=== PATIENT | male | born 1960 | race Caucasian/White ===

== ENCOUNTER → 2020-09-09 13:57 | Outpatient (BNVA) | payer BC, SELFPAY | PROVIDERS: Family Provider Family Medicine; PCP Family Medicine; Visit Provider Urology | DX: N39.9 Disorder of urinary system, unspecified (principal); R97.20 Elevated prostate specific antigen [PSA]; N52.9 Male erectile dysfunction, unspecified; N41.1 Chronic prostatitis; N40.1 Benign prostatic hyperplasia with lower urinary tract symptoms | CPT/HCPCS: 81003; 84153 ==

== ENCOUNTER → 2021-01-28 11:16 | Outpatient (BNVA) | payer BC, SELFPAY | PROVIDERS: Family Provider Family Medicine; PCP Family Medicine; Visit Provider Surgery | DX: K57.92 Diverticulitis of intestine, part unspecified, without perforation or abscess without bleeding (principal) | CPT/HCPCS: 87635 ==

== ENCOUNTER 2021-02-02 07:44 | Day surgery (SDC) | payer BC, SELFPAY ==
[2021-01-29 12:46] VITALS: BMI 32.8
--- NOTE | 2021-02-02 08:19 | ANES.PREANE2 ---
Pre-Anesthetic Assessment Pre-Anesthetic Assessment: Height/Weight: Height 1.83 m Weight 109.769 kg Preop Diagnosis: screening colonoscopy Proposed Procedure: Operation Date: 02/02/21 09:30 Proposed Procedures p Colonoscopy 99081 k57.92(Not Applicable) - Kameron Jackson MD Familial anesthetic complications: None Was Beta Kenyatta taken within 24 hours: N/A Was Clonidine taken within 24 hours: N/A Last intake: > 8 hrs Social: Social History: No alcohol and No tobacco Exam: Pre-Anes Outpt Exam: alert, oriented x 3, clear to auscultation bilaterally and regular rate & rhythm Airway: Cervical ROM: WNL MP: 1 Dentition: Other (missing) Pulmonary: Pulmonary: COPD (mild) Musc/skel: Comments: hip replacement Anesthetic Plan: ASA status: 1 Anesthesia: MAC Risk of > 500 ml blood loss (7ml/kg in children): No PFSH Anesthesia PFSH: Medical History (Updated 01/15/21 @ 16:10 by Kameron Jackson MD) BPH loc w urin obs/LUTS Chronic prostatitis COVID-19 Diverticulitis Erectile dysfunction Surgical History (Updated 01/15/21 @ 10:15 by Kameron Jackson MD) H/O laminectomy H/O vasectomy History of left hip replacement Family History Father , PROSTATE Cancer UNCLE PROSTATE CANCER Mother , AT AGE 64 Emphysema lung Social History Smoking and tobacco status: former smoker Alcohol intake: current Alcohol intake frequency: holidays/special occasions only Adopted: No Caregiver/support person: No Lives independently: No Household members: spouse Marital status: Current occupational status: employed Data Anesthesia Cardiac Studies: No Data to Display
[2021-02-02 08:30] VITALS: BP 174/97; PULSE 83; RESP 16; TEMP 36.6; O2SAT 95
[2021-02-02] MEDS: sodium chloride 0.9% 1,000 ML 30 ML IV (08:47)
--- NOTE | 2021-02-02 09:25 | W.PM.OPSUD ---
Surgery/Procedure H&P Update DATE OF PROCEDURE: February 02, 2021 DATE H&P PERFORMED: 01/15/21 H&P UPDATE INFORMATION: I have reviewed H&P completed within last 30 days, I have examined patient prior to procedure and No changes to prior documentation PREOP DIAGNOSIS: screening colonoscopy PLANNED PROCEDURE: Operation Date: 02/02/21 09:30 Proposed Procedures p Colonoscopy 11643 k57.92(Not Applicable) - Kameron Jackson MD
[2021-02-02 10:15] VITALS: BP 119/76; PULSE 73; RESP 16; TEMP 36.1; O2SAT 94
[2021-02-02 10:30] VITALS: BP 134/87; PULSE 70; RESP 16; TEMP 36.3; O2SAT 96
--- NOTE | 2021-02-02 18:59 | ANE.PACU2 ---
Inpatient post-anesthesia follow up: Airway intact: Yes Vital signs: Temperature 97.4 F Pulse Rate 70 Respiratory Rate 16 Blood Pressure 134/87 Pulse Oximetry 96 Oxygen Delivery Me thod Room Air Oxygen Flow Rate Fraction of Inspir ed Oxygen Hydration adequate: Yes Nausea and vomiting: No Pain level: 1 Mental status: Baseline
== END 2021-02-02 10:45 | disposition home or self-care (01) ==
PROVIDERS: PCP Family Medicine; Visit Provider Surgery
PROC: 0DJD8ZZ Inspection of Lower Intestinal Tract, Via Natural or Artificial Opening Endoscopic (ICD-10-PCS; CPT 45378; principal; 2021-02-02 09:30)
DX: Z12.11 Encounter for screening for malignant neoplasm of colon (principal); K57.30 Diverticulosis of large intestine without perforation or abscess without bleeding; N40.1 Benign prostatic hyperplasia with lower urinary tract symptoms; N13.8 Other obstructive and reflux uropathy; Z87.891 Personal history of nicotine dependence; J44.9 Chronic obstructive pulmonary disease, unspecified
CPT/HCPCS: 45378; 96360; 96361; J2704; J7030

== ENCOUNTER 2021-07-08 08:50 | Outpatient (CLI) | payer BC, SELFPAY ==
[2021-07-08] MEDS: iohexol 300 mg/mL 50 mL Btl PO (09:15)
--- NOTE | 2021-07-08 10:30 | CT_ITS ---
WS: [id number] CT ABDOMEN PELVIS TECHNIQUE: Contrast-enhanced CT of the abdomen and pelvis with coronal and sagittal reformatted image s. CLINICAL INFORMATION: K57.92 - Diverticulitis of intestine, part unspecified, w... COMPARISON: CT abdomen pelvis 2006 DLP: 1108.[address] scans at [facility] use at least one of these dose optimization techniques: automated e xposure control; mA and/or kV adjustment per patient size (includes targeted exams where dose is matc hed to clinical indication); or iterative reconstruction. FINDINGS: Hepatomegaly. Diffuse fatty infiltration of the liver. Normal portal vein and splenic vein. Normal ga llbladder. Normal spleen. Fatty atrophy of the pancreas. Normal GE junction. Lung bases are well aera puneet. Left DANA degrades images in the pelvis. Diffuse thickening of the proximal sigmoid colon with surroun ding induration compatible with acute diverticulitis. No evidence of drainable abscess or fluid colle ction. A few reactive lymph nodes in the pelvis. No evidence of high-grade small or large bowel obstr uction. Normal appendix in the right lower quadrant. Enlarged prostate measuring 5 cm in maximum dime nsion. Recommend correlation PSA. Adrenal glands are normal. Normal renal parenchymal enhancement. No hydronephrosis. Left upper pole r enal cyst measuring 6.7 x 4.0 CM. Right peripelvic cysts. Normal caliber abdominal aorta. Fat-contain ing umbilical hernia. Grade 1 anterolisthesis L4 on L5. Disc space narrowing worse L4-L5 and L5-S1. A dvanced degenerative arthritis right hip. CT/CT abdomen pelvis w con* [id number] IMPRESSION: 1. Findings compatible with acute sigmoid diverticulitis. No evidence of drain able abscess or fluid collection. 2. Diffuse fatty infiltration of the liver. Hepatomegaly. 3. Enlarged prostate measuring 5.0 CM. Correlation PSA. 4. No evidence of small or large bowel obstruction.
[2021-07-08 10:32] LABS: Blood Urea Nitrogen 11 mg/dL (8-23); Glomerular Filtration Rate 85.8 mL/min (90-130)
[2021-07-08] MEDS: iohexol 300 mg/mL 100 mL Btl IV (10:38)
== END 2021-07-08 08:51 | disposition home or self-care (01) ==
PROVIDERS: Surgery; PCP Family Medicine; Visit Provider Surgery
DX: K57.92 Diverticulitis of intestine, part unspecified, without perforation or abscess without bleeding (principal); K76.0 Fatty (change of) liver, not elsewhere classified; R16.0 Hepatomegaly, not elsewhere classified; N40.0 Benign prostatic hyperplasia without lower urinary tract symptoms
CPT/HCPCS: 74177; 82565; 84520; Q9967

== ENCOUNTER → 2021-07-15 12:18 | Outpatient (BNVA) | payer BC, SELFPAY | PROVIDERS: PCP Family Medicine; Visit Provider Surgery | DX: Z11.52 Encounter for screening for COVID-19 (principal) | CPT/HCPCS: 87635 ==

== ENCOUNTER 2021-07-19 12:49 | Inpatient (IN) | payer BC, SELFPAY ==
[2021-07-16 16:37] VITALS: BMI 29.4
[2021-07-19] VITALS (16 sets, daily range): BP systolic 124–171; BP diastolic 70–96; PULSE 55–83; RESP 13–20; TEMP 35.9–36.7; O2SAT 90–100
--- NOTE | 2021-07-19 09:00 | P.ANESASSM_ITS ---
Pre-Anesthetic Assessment Pre-Anesthetic Assessment: Height/Weight: Height 1.83 m Weight 98.43 kg Temp Pulse Resp BP Pulse Ox 97.1 F L 83 18 146/84 95 07/19/21 08:42 07/19/21 08:42 07/19/21 08:42 07/19/21 08:42 07/19/21 08:42 Preop Diagnosis: diverticulitis Proposed Procedure: Operation Date: 07/19/21 09:15 Proposed Procedures p Laparoscopic Sigmoidectomy 77914 K57.92(Not Applicable) - Kameron Jackson MD Was Beta Kenyatta taken within 24 hours: N/A Was Clonidine taken within 24 hours: N/A Last intake: Intake Last Liquid Date 07/18/21 Last Liquid Time 23:00 Last Solid Date 07/17/21 Last Solid Time 15:00 Social: Social History: No alcohol and No tobacco Exam: Pre-Anes Outpt Exam: alert, oriented x 3, clear to auscultation bilatera lly and regular rate & rhythm Airway: Submandibular: WNL Cervical ROM: WNL MP: 2 Dentition: Chipped GI: Comments: Diverticulitis Anesthetic Plan: ASA status: 2 Anesthesia: General Risk of > 500 ml blood loss (7ml/kg in children): No PFSH Anesthesia PFSH: Medical History BPH loc w urin obs/LUTS Chronic prostatitis COVID-19 Diverticulitis Erectile dysfunction Surgical History H/O laminectomy H/O vasectomy History of left hip replacement Status post colonoscopy (02/02/21) Diverticulosis, repeat in 5 years Family History Father , PROSTATE Cancer UNCLE PROSTATE CANCER Mother , AT AGE 64 Emphysema lung Social History Smoking and tobacco status: former smoker Alcohol intake: current Alcohol intake frequency: holidays/special occasions only Adopted: No Caregiver/support person: No Lives independently: No Household members: spouse Marital status: Current occupational status: employed Data Anesthesia Cardiac Studies: No Data to Display
--- NOTE | 2021-07-19 09:20 | W.PM.OPSUD ---
Surgery/Procedure H&P Update DATE OF PROCEDURE: July 19, 2021 DATE H&P PERFORMED: 06/22/21 H&P UPDATE INFORMATION: I have reviewed H&P completed within last 30 days, I have examined patient prior to procedure and No changes to prior documentation PREOP DIAGNOSIS: diverticulitis PLANNED PROCEDURE: Operation Date: 07/19/21 09:15 Proposed Procedures p Laparoscopic Sigmoidectomy 51076 K57.92(Not Applicable) - Kameron Jackson MD
[2021-07-19] MEDS: piperacillin-tazobactam 3.375 GM in sodium chloride 0.9% (plus) 50 ML IV ×3 (09:36→22:45)
--- NOTE | 2021-07-19 10:23 | SUR.OPER ---
attempted to contact family via cell phone. no answer
--- NOTE | 2021-07-19 12:22 | SUR.OPER ---
attempted to contact via cell phone. no answer.
--- NOTE | 2021-07-19 13:25 | PM.OP ---
Operative Report Date of procedure: July 19, 2021 Pre-op Diagnosis: Recurrent sigmoid diverticulitis Post-op Diagnosis: Recurrent sigmoid diverticulitis Procedure Done: Laparoscopic sigmoid colectomy with 29 mm EEA anastomosis Laparoscopic takedown of splenic flexure Flexible sigmoidoscopy Specimens removed/disposition: Sigmoid colon, stapled and distal Proximal and distal doughnut from EEA anastomosis Surgeon: Kameron Jackson Anesthesia: General Condition: stable Disposition: PACU Procedure: The patient was taken to the operating room, intubated under general anesthesia after IV antibiotic had been administered. The patient was placed in modified lithotomy position with shoulder support and the Lebron catheter was placed. The rectum was irrigated with diluted Betadine using red rubber catheter. The abdomen and the perineum was prepped and draped in a sterile manner. Using a 15 blade, a midline supraumbilical incision was made and using open Bunn technique the peritoneal cavity was entered, 12 mm port was placed and 15 mm of pneumoperitoneum was created. A 10 mm 30? scope was then introduced. 5 mm ports were placed in the left lower quadrant and in the right upper quadrant under direct visualization in the midclavicular line and and a 12 mm port was placed in the right lower quadrant. Examination of the peritoneal cavity revealed thickened sigmoid colon adherent to the pelvic wall. 20 cc of saline mixed with 20 cc of Exparel mixed with 20 cc of 0.5% Marcaine was infiltrated bilaterally in the midclavicular line for laparoscopic TAP block. The patient was placed in steep Trendelenburg position and rotated to the right in order to place a small bowel loops in the right upper quadrant. The transverse colon was retracted superiorly. The junction between the descending colon and the sigmoid colon was marked and an opening was made in the sigmoid mesocolon at the junction of the descending and sigmoid colon. A medial to lateral dissection of the sigmoid mesocolon was performed using LigaSure close to the sigmoid colon and therefore the ureter was not identified. There were adhesions of the sigmoid colon to the pelvic wall which were taken down. The IMV was identified lateral to the ligament of Treitz and an opening was made medial to the IMV to enter the retroperitoneal space. The descending colon was mobilized medial to lateral up to the line of Toldt in the avascular retroperitoneal plane. The line of Toldt was opened along the descending colon up to the splenic flexure and the avascular plane was entered to mobilize the descending colon completely. The splenocolic and phrenocolic ligaments were taken down and the lesser sac was entered by dividing the greater omentum adjacent to the distal transverse colon, which was divided until the splenic flexure was completely mobilized. The sigmoid mesocolon was divided using LigaSure down to the proximal rectum. 2 loads of 45 mm blue load [place] ERIC stapler was introduced through the right lower quadrant port to divide the rectum distally. At this point it appeared that the descending colon reached up to the rectum and the midline umbilical incision was extended, the pneumoperitoneum was released and a wound protector was placed and the divided sigmoid colon was exteriorized. A noncrushing bowel clamps were placed in the descending colon and an Autosuture pursestring was placed proximally and the colon was divided and the specimen removed from the operating field. Serial anal dilators were used and it was decided to proceed with the 29 mm EEA stapler. The anvil of the EEA stapler was introduced into the descending colon and tied down. The colon was introduced into the peritoneal cavity and the pneumoperitoneum was recreated. The anus was digitally dilated and the EEA stapler was introduced through the anal canal and the trocar passed through the previously created staple line and attached to the anvil after ensuring that there was no twisting of the mesentery. The EEA stapler was fired to create the stapled 29 mm end-to-end anastomosis and 2 intact doughnuts were retrieved which were sent as proximal margin and distal margin. A colonoscope was introduced and passed beyond the anastomosis after submerging the anastomosis under saline in the pelvis. The air leak test was negative. There was no significant bleeding noted from the staple line which was at 18cm. The colonoscope was withdrawn. All 4 ports were removed under direct visualization and the fascia the midline was closed using #1 loop PDS. 20 cc of Exparel combination was infiltrated in the periumbilical incision. The fascia of the right lower quadrant port was closed using [id number] 0 Vicryl suture. The subcutaneous tissue was approximated using 3-0 Vicryl suture and skin was closed using running subcuticular 4-0 Monocryl suture and Dermabond. The patient was subsequently extubated and transferred to recovery room with a Lebron catheter in place.
[2021-07-19] MEDS: HYDROmorphone 1 mg/mL INJ 1 mL 0.5 MG IVP ×2 (13:41→13:51)
--- NOTE | 2021-07-19 14:48 | ANE.PACU2 ---
Inpatient post-anesthesia follow up: Airway intact: Yes Vital signs: Temperature 97.7 F Pulse Rate 57 Respiratory Rate 13 Blood Pressure 158/89 Pulse Oximetry 97 Oxygen Delivery Me thod Room Air Oxygen Flow Rate 8 Fraction of Inspir ed Oxygen Hydration adequate: Yes Nausea and vomiting: No Pain level: 2 Mental status: Baseline
[2021-07-19] MEDS: finasteride 5 mg Tablet PO (14:59)
[2021-07-19] MEDS: D5-NS 0.45% + KCL 20 mEq 20 MEQ/1,000 ML BAG 100 MEQ IV (15:00)
[2021-07-19] MEDS: famotidine 20 mg/2 mL INJ IVP (18:11)
[2021-07-19] MEDS: sennosides-docusate Tablet 1 TAB PO (18:21)
[2021-07-19] MEDS: tamsulosin 0.4 mg Capsule PO (18:21)
--- NOTE | 2021-07-19 18:45 | PC.NURSE ---
Patient complains of tingling and numbness in left arm. Notified Dr. Jackson. He states we will monitor.
[2021-07-19] MEDS: HYDROcodone-acetaminophen 5-325 mg Tablet 1 TAB PO (19:19)
[2021-07-19] MEDS: ondansetron 2 mg/ML SDV 2 mL 4 MG IVP (19:27)
[2021-07-19] MEDS: morphine 4 mg/mL SDV 1 mL 3 MG IVP (22:27)
[2021-07-20] VITALS (9 sets, daily range): BP systolic 135–162; BP diastolic 72–94; PULSE 66–88; RESP 17–18; TEMP 36.6–37; O2SAT 86–95
[2021-07-20] MEDS: D5-NS 0.45% + KCL 20 mEq 20 MEQ/1,000 ML BAG 100 MEQ IV (00:09)
[2021-07-20] MEDS: morphine 4 mg/mL SDV 1 mL 3 MG IVP ×3 (02:58→17:14)
[2021-07-20] MEDS: ondansetron 2 mg/ML SDV 2 mL 4 MG IVP (02:58)
--- NOTE | 2021-07-20 03:09 | PC.NURSE ---
Morphine administration: When screwing the syringe filled with Morphine into the IVF tubing it dropped on the ground. Brought back to the nurses station and 3mg wasted with REBEKA Abad and another vial pulled to give to the patient.
[2021-07-20 03:24] LABS: Basophils % 0.1 %; Hemoglobin 13.7 g/dL (11.7-16.6); Lymphocytes # 1.1 10^3/uL (0.8-4.8); Lymphocytes % 8.1 %; Mean Corpuscular HGB Conc 34.3 g/dL (30.0-36.0); Mean Corpuscular Hemoglobin 32.8 pg (28.0-34.0); Mean Corpuscular Volume 95.7 fl (80-94); Mean Platelet Volume 9.5 fL (7.4-10.4); Monocytes % 7.5 %; Neutrophils # 11.37 10^3/uL (1.8-7.7); Nucleated Red Blood Cells % 0 %; Platelet Count 198 10^3/cmm (130-400); Red Blood Count 4.18 10^6/uL (4.1-5.3); Red Cell Distribution Width 12.7 % (12.1-15.1); White Blood Count 13.5 10^3/uL (4.0-10.0)
[2021-07-20 03:42] LABS: Anion Gap 14.2 (5-19); Blood Urea Nitrogen 7 mg/dL (8-23); Carbon Dioxide 24 mmol/L (22-29); Chloride 105 mmol/L (98-107); Glomerular Filtration Rate 114.6 mL/min (90-130); Glucose 148 mg/dL (65-115); Osmolality Calculated 289 mOsm/kg (285-295); Potassium 4.2 mmol/L (3.5-5.1); Sodium 139 mmol/L (136-145)
--- NOTE | 2021-07-20 04:18 | PC.NURSE ---
i reported low pulse 86 to nurse
[2021-07-20] MEDS: famotidine 20 mg/2 mL INJ IVP ×2 (05:18→17:15)
[2021-07-20] MEDS: piperacillin-tazobactam 3.375 GM in sodium chloride 0.9% (plus) 50 ML IV ×3 (06:45→22:39)
[2021-07-20] MEDS: sennosides-docusate Tablet 1 TAB PO ×2 (08:24→17:15)
[2021-07-20] MEDS: tamsulosin 0.4 mg Capsule PO ×2 (08:24→17:15)
[2021-07-20] MEDS: finasteride 5 mg Tablet PO (08:24)
[2021-07-20] MEDS: HYDROcodone-acetaminophen 5-325 mg Tablet 1 TAB PO ×2 (11:17→17:18)
--- NOTE | 2021-07-20 11:28 | PC.CHAP ---
Pastoral Care Encounter/Spiritual Assessment Type of Contact [] Declined coremaker machine visit [] Patient/Family/Request visit [] Outpatient visit [] Follow-up visit [] Physician referral [] Code/Alert [x] Routine visit [] Staff referral [] Actively dying [] Patient sleeping [] Family support [] [] Out of room [] Palliative care [] [x] Receiving care in room [] Pre-surgical visit [] Trauma [] Long length of stay [] ICU visit [] Other: Relational/Emotional Strength [] Patient feels connected with others/family/visitors/staff [] Distress [] Loneliness/isolation [] Abandonment Spirituality of Patient [] Person of Bia [] Attends Rastafari of their Bia [] Believes in Prayer [] Reads Bible or Jew materials [] There are Spiritual issues to be addressed [place] Interventions [] Prayer [] Active listening [] Non-anxious presence [] Spiritual/emotional support [] Crisis/trauma care [] Spiritual counseling [] Bereavement support [] Provided bereavement packet [] Provided Bible/devotional materials [] Provided toy/stuffed animal, coloring book to patient or family member [] Provided Communion [] Anointing/[place] [] Salvation [] Completed spiritual assessment [] Other: Impact on Illness or Injury [] Angry [] Fearful [] Anxious [] Often cries [] Exhaustion [] Unable to work [] Unable to attend sabianist [] Unable to walk/stand [] Unable to read [] Unable to drive [] Unable to eat/drink [] Unable to sleep [] Unable to be with family [] Patient intubated [] Other: Summary Time spent with patient
--- NOTE | 2021-07-20 13:01 | PM.PN ---
Subjective Subjective: Interval history: Patient denies significant pain, no nausea, vomiting, flatus or BM Vitals/I&O/Wt Last Vital Signs Temp 98.6 F 07/20/21 11:44 Pulse 68 07/20/21 11:44 Resp 18 07/20/21 11:44 BP 162/72 07/20/21 11:44 Pulse Ox 93 07/20/21 11:44 07/19/21 07/20/21 07/20/21 22:59 06:59 14:59 Intake Total 150 / 1445 1245 / 1445 360 / 360 Output Total 500 / 1520 1000 / 1520 1000 / 1000 Balance -350 / -75 245 / -75 -640 / -640 Physical Exam Narrative: EXAM NARRATIVE: Abdomen: Soft, tender, minimally distended, incision clean dry and intact Urinary Catheter Management^: Coude: Cath Placed During This Visit: yes, but has since been removed by the nurse Reason for Continuing Indwelling Catheter: Acute Urinary Retention or Obstruction Urinary Catheter Date of Insertion: 07/19/21 Urinary Catheter Time of Insertion: 10:00 Date Urinary Catheter Removed: 07/20/21 Time Urinary Catheter Discontinued: 11:45 Data : 07/20/21 02:48 07/20/21 02:48 A&P Assessment and plan (1) S/P laparoscopic-assisted sigmoidectomy: 61-year-old male status post sigmoid colectomy with postop ileus DC IV fluids Ambulate ad jessie. Clear liquid diet DC Lebron catheter [place] morphine and Tylenol for pain control Senna S for bowel regimen Pepcid twice daily for GI prophylaxis Lovenox SCD for DVT prophylaxis Daily labs Continue IV Zosyn since there was significant inflammation noted during surgery Status: Acute Attestations Medical Necessity Statement*: Patient will need greater than 2 nights of inpatient stay to ensure resolution of ileus Coding Level of Care Code Acute Grain Oilseed Or Pasture Grower for Chg Fwd Diagnoses S/P laparoscopic-assisted sigmoidectomy Z90.49
[2021-07-20] MEDS: enoxaparin 40 mg/0.4 mL Syringe SUBCUT (13:11)
[2021-07-21] VITALS (7 sets, daily range): BP systolic 140–159; BP diastolic 71–90; PULSE 68–92; RESP 15–93; TEMP 36.6–36.9; O2SAT 93–95
[2021-07-21] MEDS: HYDROcodone-acetaminophen 5-325 mg Tablet 1 TAB PO ×4 (01:57→23:08)
[2021-07-21 02:26] LABS: Basophils % 0.4 %; Eosinophils % 0.3 %; Hematocrit 40.9 % (42.0-52.0); Hemoglobin 13.7 g/dL (11.7-16.6); Lymphocytes # 1.9 10^3/uL (0.8-4.8); Lymphocytes % 16.2 %; Mean Corpuscular HGB Conc 33.5 g/dL (30.0-36.0); Mean Corpuscular Hemoglobin 32.5 pg (28.0-34.0); Mean Corpuscular Volume 96.9 fl (80-94); Mean Platelet Volume 9.4 fL (7.4-10.4); Monocytes % 8.3 %; Neutrophils # 8.48 10^3/uL (1.8-7.7); Neutrophils % 74.4 %; Nucleated Red Blood Cells % 0 %; Platelet Count 177 10^3/cmm (130-400); Red Blood Count 4.22 10^6/uL (4.1-5.3); Red Cell Distribution Width 12.9 % (12.1-15.1); White Blood Count 11.4 10^3/uL (4.0-10.0)
[2021-07-21 02:52] LABS: Anion Gap 14.9 (5-19); Blood Urea Nitrogen 7 mg/dL (8-23); Calcium 8.3 mg/dL (8.5-10.5); Carbon Dioxide 25 mmol/L (22-29); Chloride 101 mmol/L (98-107); Glomerular Filtration Rate 114.6 mL/min (90-130); Glucose 128 mg/dL (65-115); Osmolality Calculated 284 mOsm/kg (285-295); Potassium 3.9 mmol/L (3.5-5.1); Sodium 137 mmol/L (136-145)
[2021-07-21] MEDS: acetaminophen 325 mg Tablet 650 MG PO (06:19)
[2021-07-21] MEDS: famotidine 20 mg/2 mL INJ IVP ×2 (06:30→17:17)
[2021-07-21] MEDS: piperacillin-tazobactam 3.375 GM in sodium chloride 0.9% (plus) 50 ML IV ×3 (06:35→23:09)
[2021-07-21] MEDS: tamsulosin 0.4 mg Capsule PO ×2 (08:00→17:17)
[2021-07-21] MEDS: sennosides-docusate Tablet 1 TAB PO ×2 (08:00→17:17)
[2021-07-21] MEDS: finasteride 5 mg Tablet PO (08:00)
[2021-07-21] MEDS: enoxaparin 40 mg/0.4 mL Syringe SUBCUT (12:13)
--- NOTE | 2021-07-21 13:29 | P.PN_ITS ---
Subjective Subjective: Interval history: Patient has been doing well, passing flatus, no nausea or vomiting, feels a bit distended, no BM Vitals/I&O/Wt Last Vital Signs Temp 98.1 F 07/21/21 11:47 Pulse 69 07/21/21 11:47 Resp 17 07/21/21 11:47 BP 149/85 07/21/21 11:47 Pulse Ox 94 07/21/21 11:47 07/20/21 07/21/21 07/21/21 22:59 06:59 14:59 Intake Total 890 / 2760 150 / 2760 250 / 250 Output Total 1050 / 2310 260 / 2310 1303 / 1303 Balance -160 / 450 -110 / 450 -1053 / -1053 Physical Exam Narrative: EXAM NARRATIVE: Abdomen: Soft, slightly distended, nontender, incision clean dry and intact Urinary Catheter Management^: Coude: Cath Placed During This Visit: yes, but has since been removed by the nurse Reason for Continuing Indwelling Catheter: Acute Urinary Retention or Obstruction Urinary Catheter Date of Insertion: 07/19/21 Urinary Catheter Time of Insertion: 10:00 Date Urinary Catheter Removed: 07/20/21 Time Urinary Catheter Discontinued: 11:45 Data : 07/21/21 02:11 07/21/21 02:11 A&P Assessment and plan (1) S/P laparoscopic-assisted sigmoidectomy: 61-year-old male status post sigmoid colectomy with postop ileus Ambulate ad jessie. Full liquid diet, advised to restrict amount of intake if distended [place] morphine and Tylenol for pain control Senna S for bowel regimen Pepcid twice daily for GI prophylaxis Lovenox SCD for DVT prophylaxis Daily labs Continue IV Zosyn since there was significant inflammation noted during surgery Status: Acute Attestations Medical Necessity Statement*: Postop ileus requiring continued inpatient stay Coding Level of Care Code Acute Utility Division Project Manager for Chg Fwd Diagnoses S/P laparoscopic-assisted sigmoidectomy Z90.49
[2021-07-21] MEDS: diphenhydrAMINE 12.5 mg/5 mL UDC 10 mL PO (14:25)
[2021-07-21] MEDS: ALPRAZolam 0.5 mg Tablet 0.25 MG PO (17:17)
[2021-07-22] MEDS: diphenhydrAMINE 12.5 mg/5 mL UDC 10 mL PO (01:11)
[2021-07-22] MEDS: ALPRAZolam 0.5 mg Tablet 0.25 MG PO ×3 (01:17→21:47)
[2021-07-22 02:23] LABS: Basophils # 0.1 10^3/uL (0.0-0.1); Basophils % 0.3 %; Eosinophils % 0.3 %; Hematocrit 42.5 % (42.0-52.0); Hemoglobin 14.6 g/dL (11.7-16.6); Lymphocytes # 1.5 10^3/uL (0.8-4.8); Lymphocytes % 10.6 %; Mean Corpuscular HGB Conc 34.4 g/dL (30.0-36.0); Mean Corpuscular Hemoglobin 32.8 pg (28.0-34.0); Mean Corpuscular Volume 95.5 fl (80-94); Mean Platelet Volume 9.7 fL (7.4-10.4); Monocytes % 6.9 %; Neutrophils # 11.66 10^3/uL (1.8-7.7); Neutrophils % 81.6 %; Nucleated Red Blood Cells % 0 %; Platelet Count 191 10^3/cmm (130-400); Red Blood Count 4.45 10^6/uL (4.1-5.3); Red Cell Distribution Width 12.7 % (12.1-15.1); White Blood Count 14.3 10^3/uL (4.0-10.0)
[2021-07-22 02:45] LABS: Blood Urea Nitrogen 9 mg/dL (8-23); Calcium 8.7 mg/dL (8.5-10.5); Carbon Dioxide 26 mmol/L (22-29); Chloride 99 mmol/L (98-107); Glomerular Filtration Rate 114.6 mL/min (90-130); Glucose 152 mg/dL (65-115); Osmolality Calculated 286 mOsm/kg (285-295); Sodium 137 mmol/L (136-145)
[2021-07-22 02:49] LABS: Anion Gap 15.6 (5-19); Potassium 3.6 mmol/L (3.5-5.1)
[2021-07-22 03:15] VITALS: BP 162/87; PULSE 85; RESP 16; TEMP 36.9; O2SAT 94
[2021-07-22] MEDS: famotidine 20 mg/2 mL INJ IVP (05:02)
[2021-07-22] MEDS: piperacillin-tazobactam 3.375 GM in sodium chloride 0.9% (plus) 50 ML IV ×2 (06:32→14:21)
[2021-07-22 07:20] VITALS: BP 164/88; PULSE 80; RESP 20; TEMP 36.6; O2SAT 94
[2021-07-22] MEDS: sennosides-docusate Tablet 1 TAB PO ×2 (09:15→17:06)
[2021-07-22] MEDS: tamsulosin 0.4 mg Capsule PO ×2 (09:15→17:06)
[2021-07-22] MEDS: HYDROcodone-acetaminophen 5-325 mg Tablet 1 TAB PO ×2 (09:15→19:04)
[2021-07-22] MEDS: finasteride 5 mg Tablet PO (09:15)
[2021-07-22 12:00] VITALS: BP 156/89; PULSE 81; RESP 19; TEMP 36.8; O2SAT 93
[2021-07-22] MEDS: enoxaparin 40 mg/0.4 mL Syringe SUBCUT (14:21)
[2021-07-22 16:00] VITALS: BP 152/77; PULSE 73; RESP 17; TEMP 36.7; O2SAT 94
--- NOTE | 2021-07-22 16:42 | P.PN_ITS ---
Subjective Subjective: Interval history: Patient feels less distended today, no nausea or vomiting, passing flatus, no BM, abdominal pain controlled with [place] Vitals/I&O/Wt Last Vital Signs Temp 98.0 F 07/22/21 16:00 Pulse 73 07/22/21 16:00 Resp 17 07/22/21 16:00 BP 152/77 07/22/21 16:00 Pulse Ox 94 07/22/21 16:00 07/22/21 07/22/21 07/22/21 06:59 14:59 22:59 Intake Total 250 / 790 210 / 210 Output Total 650 / 650 Balance 250 / -863 -440 / -440 Physical Exam Narrative: EXAM NARRATIVE: Abdomen: Soft, less distended, minimally tender, incision clean dry intact Urinary Catheter Management^: Coude: Cath Placed During This Visit: yes, but has since been removed by the nurse Reason for Continuing Indwelling Catheter: Acute Urinary Retention or Obstruction Urinary Catheter Date of Insertion: 07/19/21 Urinary Catheter Time of Insertion: 10:00 Date Urinary Catheter Removed: 07/20/21 Time Urinary Catheter Discontinued: 11:45 Data : 07/22/21 02:05 07/22/21 02:05 A&P Assessment and plan (1) S/P laparoscopic-assisted sigmoidectomy: 61-year-old male status post sigmoid colectomy with postop ileus Ambulate ad jessie. Full liquid diet, advised to restrict amount of intake if distended [place] morphine and Tylenol for pain control Senna S for bowel regimen DC Pepcid as patient had some burning sensation after he took Pepcid Lovenox SCD for DVT prophylaxis Continue IV Zosyn since there was significant inflammation noted during surgery\ Hopefully patient can go home tomorrow morning Status: Acute Attestations Medical Necessity Statement*: Postop ileus requiring 1 more night of inpatient stay Coding Level of Care Code Acute Statistical Methods Professor for g Fwd Diagnoses S/P laparoscopic-assisted sigmoidectomy Z90.49
[2021-07-22 20:30] VITALS: BP 155/82; PULSE 84; RESP 16; TEMP 37.2; O2SAT 93
[2021-07-22] MEDS: diphenhydrAMINE 25 mg Capsule PO (21:47)
[2021-07-23] MEDS: piperacillin-tazobactam 3.375 GM in sodium chloride 0.9% (plus) 50 ML IV ×2 (00:05→07:48)
[2021-07-23 00:40] VITALS: BP 154/87; PULSE 75; RESP 16; TEMP 36.5; O2SAT 94
[2021-07-23 04:00] VITALS: BP 143/87; PULSE 78; RESP 16; TEMP 37.2; O2SAT 94
[2021-07-23] MEDS: HYDROcodone-acetaminophen 5-325 mg Tablet 1 TAB PO (07:48)
[2021-07-23] MEDS: sennosides-docusate Tablet 1 TAB PO (07:49)
[2021-07-23] MEDS: finasteride 5 mg Tablet PO (07:49)
[2021-07-23] MEDS: tamsulosin 0.4 mg Capsule PO (07:49)
[2021-07-23 08:00] VITALS: BP 158/79; PULSE 74; RESP 17; TEMP 36.5; O2SAT 92
[2021-07-23] MEDS: enoxaparin 40 mg/0.4 mL Syringe SUBCUT (11:26)
[2021-07-23 12:00] VITALS: BP 147/89; PULSE 81; RESP 18; TEMP 36.8; O2SAT 92
--- NOTE | 2021-07-23 13:25 | PM.PN ---
Subjective Subjective: Interval history: Patient is ready to go home today, passing flatus, no nausea or vomiting, denies any distention, no BM yet Vitals/I&O/Wt Last Vital Signs Temp 98.2 F 07/23/21 12:00 Pulse 81 07/23/21 12:00 Resp 18 07/23/21 12:00 BP 147/89 07/23/21 12:00 Pulse Ox 92 07/23/21 12:00 07/22/21 07/23/21 07/23/21 22:59 06:59 14:59 Intake Total 320 / 1300 770 / 1300 50 / 50 Output Total 0 / 1040 390 / 1040 525 / 525 Balance 320 / 260 380 / 260 -475 / -475 Physical Exam Narrative: EXAM NARRATIVE: Abdomen: Soft, nondistended, nontender, incision clean dry and intact Urinary Catheter Management^: Coude: Cath Placed During This Visit: yes, but has since been removed by the nurse Reason for Continuing Indwelling Catheter: Acute Urinary Retention or Obstruction Urinary Catheter Date of Insertion: 07/19/21 Urinary Catheter Time of Insertion: 10:00 Date Urinary Catheter Removed: 07/20/21 Time Urinary Catheter Discontinued: 11:45 Data : 07/22/21 02:05 07/22/21 02:05 A&P Assessment and plan (1) S/P laparoscopic-assisted sigmoidectomy: 61-year-old male status post sigmoid colectomy with postop ileus Ambulate ad jessie. DC home today Status: Acute Attestations Medical Necessity Statement*: DC home today Coding Level of Care Code Acute Geophysical Laboratory Chief for g Fwd Diagnoses S/P laparoscopic-assisted sigmoidectomy Z90.49
--- NOTE | 2021-07-23 13:29 | PM.DCS ---
Discharge Providers Date of Admission: 07/19/21 12:49 Date of Discharge: July 23, 2021 Attending Provider at Admission: Kameron Jackson MD Attending Provider at Discharge: Kameron Jackson MD Primary Care Provider: Kinsey Pack DO Diagnoses at Discharge Discharge Diagnosis (1) S/P laparoscopic-assisted sigmoidectomy: Status: Acute Reason for Visit Reason for Visit: lap poss open sigmoid colectomy Hospital Course Hospital Course This is a 61-year-old male with recurrent diverticulitis who underwent laparoscopic sigmoid colectomy. By postop day 2 patient was passing flatus and was tolerating a full liquid diet. Patient is discharged home on day 4. At time of discharge his vital signs are stable, his incision is clean dry and intact and is ambulating and his pain well controlled with oral pain medications. Physical Exam Narrative: EXAM NARRATIVE: Abdomen: Soft, nontender, nondistended, incisions healing well Urinary Catheter Management^: Coude: Cath Placed During This Visit: yes, but has since been removed by the nurse Reason for Continuing Indwelling Catheter: Acute Urinary Retention or Obstruction Urinary Catheter Date of Insertion: 07/19/21 Urinary Catheter Time of Insertion: 10:00 Date Urinary Catheter Removed: 07/20/21 Time Urinary Catheter Discontinued: 11:45 Discharge Data Data Completed and Pending: Completed Studies During Hospitalization Category Date Time Status Pathology: Surgic al [PTH] Routine Pth 07/19/21 12:42 Completed Vitals: Last Vital Signs Temp 98.2 F 07/23/21 12:00 Pulse 81 07/23/21 12:00 Resp 18 07/23/21 12:00 BP 147/89 07/23/21 12:00 Pulse Ox 92 07/23/21 12:00 Discharge Plan Discharge Patient Disposition: Home Condition: Stable Prescriptions: New hydrocodone-acetaminophen 5-325 mg tablet 1 tab PO Q6H PRN (Reason: pain) Qty: 20 RF: 0 levofloxacin 750 mg tablet 750 mg PO DAILY 5 Days RF: 0 sennosides-docusate sodium [Senna with Docusate Sodium] 8.6-50 mg tablet 1 tab-cap PO BID Qty: 30 RF: 0 metronidazole [Flagyl] 500 mg tablet 500 mg PO Q8H 5 Days Qty: 15 RF: 0 ondansetron HCl [Zofran] 4 mg tablet 4 mg PO Q6H PRN (Reason: nausea and vomiting) Qty: 20 RF: 0 Continued meloxicam 15 mg tablet 15 mg PO DAILY RF: 0 tamsulosin 0.4 mg capsule 0.4 mg PO BID Qty: 180 RF: 3 finasteride 5 mg tablet See Rx Instructions .ROUTE .COMPLEX Qty: 90 RF: 3 sildenafil 100 mg tablet See Rx Instructions .Route .COMPLEX PRN (Reason: Sexual Activity) RF: 0 Discontinued promethazine 25 mg suppository 25 mg MI Q6H PRN (Reason: Nausea) RF: 0 ciprofloxacin HCl 500 mg tablet 500 mg PO BID 7 Days Qty: 14 RF: 0 metronidazole 500 mg tablet 500 mg PO TID 7 Days Qty: 21 RF: 0 Discharge Orders: Discharge Order (Routine); Ordered 07/23/21 Ordered By: Kameron Jackson Referrals: Kameron Jackson MD [Physician] - 7-10 days Patient Instructions: Opioid Safety Activity Restrictions/Additional Instructions: Diet Advance to normal diet as tolerated, increase fluid intake as much as possible. Activity Avoid strenuous activity for 2 weeks but continue with daily activities including walking as tolerated. Do not lift more than 10 pounds for 2 weeks Return to work/school You can return to work/ school whenever you feel ready as long as you don?t have to lift more than 10 pounds at work. If you have paperwork that needs to be completed for time off from work, please contact my office Driving You can resume driving once you stop using narcotic pain medications, and transition to non-opioid pain medications like Tylenol, Motrin, Aleve, etc. Medications Pain Take opioid pain medications as prescribed and transition to non-opioid pain medications like Tylenol, Motrin, Aleve etc. over the next few days. The goal of the pain medications is to make the pain bearable and not to be pain free since you recently had surgery. Resume all home medications after surgery as per the medication reconciliation list Nausea Nausea is common after surgery, take nausea medications as needed and stay on a liquid bland diet until nausea resolves. Constipation The combination of surgery, anesthesia and pain medications can result in constipation. Take stool softeners as prescribed. If you do not have a bowel movement in 3 days, please take an espl-clg-xojlqmh laxative like MiraLAX to address the constipation. Shower It is ok to shower but avoid getting the wound wet for 48 hours after surgery. Do not soak in bathtub, swimming pool or hot tub for 2 weeks. Wound care If glue has been used on your incisions after surgery, the glue on the incision will peel slowly over the next two weeks. The stitches used are dissolvable and will not need to be removed. Do not apply antibiotics or other medications on the incision Problems with the wound: you can develop some redness around the incision from bruising after surgery. If there is increasing pain, redness, tenderness around the incision with or without drainage, please contact my office to rule out an infection. Sometimes the skin at the incisions can separate, resulting in reopening of the wound. Cover the wound with antibiotic cream and sterile dressings and contact my office. Contact physician Call the office at [phone] during office hours or go the Emergency Room ?Fever to 100.4 or greater ?Shaking chills ?Pain that increases over time ?Redness, warmth, or pus draining from incision sites ?Persistent nausea or inability to take in liquids Discharge Attestations Time Spent in Discharge Care*: less than 30 min Quality Metrics Clinical Quality Measures During this hospital stay, did patient experience: None Coding Level of Care Code Acute [facility] FW DC note Diagnoses S/P laparoscopic-assisted sigmoidectomy Z90.49
[2021-07-23 15:28] VITALS: BP 147/89; PULSE 81; RESP 18; TEMP 36.8; O2SAT 92
--- NOTE | 2021-07-26 11:59 | PC.SOCIAL ---
discharge follow up call made, spoke with patient. patient picked up new medications from the pharmacy and is taking as prescribed. patient is aware of discontinued medications. patient is aware of follow up appointment with dr. hurd. patients pain medications is tolerating pain. patient denies nausea. has advanced is diet as tolerated. denies questions or concerns.
== END 2021-07-23 15:29 | disposition home or self-care (01) | DRG 330 ==
LOC: MEDSURG 12:56
PROVIDERS: Admitting Provider Surgery; PCP Family Medicine; Visit Provider Surgery
PROC: 0DTN4ZZ Resection of Sigmoid Colon, Percutaneous Endoscopic Approach (ICD-10-PCS; CPT 44204; principal; 2021-07-19 09:15)
PROC: 0DJD8ZZ Inspection of Lower Intestinal Tract, Via Natural or Artificial Opening Endoscopic (ICD-10-PCS; CPT 45378; 2021-07-19 09:15)
DX: K57.32 Diverticulitis of large intestine without perforation or abscess without bleeding (principal); K56.7 Ileus, unspecified; N40.0 Benign prostatic hyperplasia without lower urinary tract symptoms; N41.1 Chronic prostatitis; Z86.16 Personal history of COVID-19; Z87.891 Personal history of nicotine dependence
CPT/HCPCS: 36415; 51702; 80048; 85025; 88309; 94664; 96365; 96372; 97116; 97161; C9290; J1100; J1170; J1650; J2270; J2405; J2543; J2704; J2710; J3010; J3490

== ENCOUNTER → 2021-09-14 13:09 | Outpatient (BNVA) | payer BC, SELFPAY | PROVIDERS: PCP Family Medicine; Visit Provider Urology | DX: N40.1 Benign prostatic hyperplasia with lower urinary tract symptoms (principal); N52.9 Male erectile dysfunction, unspecified | CPT/HCPCS: 81003; 84153 ==

== ENCOUNTER 2021-10-30 08:54 | Inpatient (IN) | payer BC, SELFPAY ==
[2021-10-30 09:03] VITALS: BP 175/79; PULSE 55; RESP 18; TEMP 36.5; O2SAT 98; BMI 26.9
[2021-10-30 09:24] VITALS: BP 170/85; PULSE 54; RESP 18; O2SAT 98
--- NOTE | 2021-10-30 09:29 | CTR_ITS ---
PROCEDURE INFORMATION: Exam: CT Abdomen And Pelvis With Contrast Exam date and time: 10/30/2021 9:29 AM Age: 61 years old Clinical indication: Abdominal tenderness and constipation; Prior surgery; Additional info: Abd pain, concern for obstruction TECHNIQUE: Imaging protocol: Computed tomography of the abdomen and pelvis with contrast. Total images: 244 Radiation optimization: All CT scans at this facility use at least one of these dose optimization techniques: automated exposure control; mA and/or kV adjustment per patient size (includes targeted exams where dose is matched to clinical indication); or iterative reconstruction. Contrast material: OMNI 300; Contrast volume: 95 ml; Contrast route: INTRAVENOUS (IV); COMPARISON: CT abdomen pelvis w con* [id number] 07/08/2021 10:36 AM RADIATION DOSE METRICS: Total DLP (mGy-cm): 1622.34 FINDINGS: Lungs: Mild dependent atelectasis. Liver: Normal. No mass. Gallbladder and bile ducts: Normal. No calcified stones. No ductal dilation. Pancreas: Normal. No ductal dilation. Spleen: Normal. No splenomegaly. Adrenal glands: Normal. No mass. Kidneys and ureters: 5 cm largest cyst noted in kidneys that have multiple simple renal cysts. No further evaluation required. Stomach and bowel: Prior bowel resection and anastomosis is evident at the rectosigmoid junction. Moderate distension of the colon is seen proximal to this site with fecal matter and air fluid levels present. Small amount of fecal matter is seen within the rectum. Findings suggesting a partial obstruction. Appendix: No evidence of appendicitis. Intraperitoneal space: Unremarkable. No free air. No significant fluid collection. Vasculature: Unremarkable. No abdominal aortic aneurysm. Lymph nodes: Unremarkable. No enlarged lymph nodes. Urinary bladder: Unremarkable as visualized. Reproductive: Unremarkable as visualized. Bones/joints: Left hip arthroplasty is present. Severe degenerative changes of the right hip. Bridging osteophytes are seen spanning the SI joints bilaterally. Spinal degenerative changes are evident. Grade 1 anterior spondylolisthesis of L4 on L5 with left unilateral spondylolysis and bilateral facet degeneration. This finding is stable when compared to the prior exam. Disc degeneration is most notable at L5/S1. This finding is stable when compared to the prior exam. Soft tissues: Unremarkable. CT/CT abdomen pelvis w con* [id number] IMPRESSION: Prior bowel resection and anastomosis is evident at the rectosigmoid junction. Moderate distension of the colon is seen proximal to this site with fecal matter and air fluid levels present. Small amount of fecal matter is seen within the rectum. Findings suggesting a partial obstruction. COMMENTS: Consistent with the [employer]'s Incidental Findings Committee white paper (J Am Lili Radiol 2018): Any incidental renal lesion less than 1 cm or classified as too small to characterize, or any incidental cystic renal lesion characterized as simple-appearing, is likely benign. No follow-up imaging is recommended for these lesions per consensus recommendations based on imaging criteria.
--- NOTE | 2021-10-30 09:31 | ED_ITS ---
HPI - Abdominal Pain General: Chief Complaint: Abdominal Pain Stated Complaint: constipation; previous sigmoidectomy Time Seen by Provider: 10/30/21 09:12 History of Present Illness: HPI narrative: Patient comes in complaining of abdominal pain which he describes as left lower quadrant, constant, started about 7 days ago, sharp, associated with vomiting. He states he has not been able to have a bowel movement for the past 4 days. States 3 months ago he had sigmoidectomy secondary to diverticulitis. He denies any fever. Associated Symptoms: Reports constipation, hematochezia and vomiting; Denies fever(s) and nausea Review of Systems Const: Denies: fever(s) or body aches Eyes: Denies: change in vision or blurry vision ENMT: Denies: throat pain or odynophagia Card: Denies: chest pain or palpitations Resp: Denies: dyspnea or productive cough GI: Reports: abdominal pain, vomiting, constipation and hematochezia; Denies: nausea : Denies: flank pain Musc: Denies: neck pain or back pain Skin/Breast: Denies: rash or pruritus Neuro: Denies: headache(s) or numbness in extremities Psych: Denies: anxiety or change in appetite Endo: Denies: polyuria or excessive sweating PFSH ED PFSH: Medical History BPH loc w urin obs/LUTS Chronic prostatitis COVID-19 Diverticulitis Erectile dysfunction Surgical History H/O laminectomy H/O vasectomy History of left hip replacement S/P laparoscopic-assisted sigmoidectomy (07/19/21) Status post colonoscopy (02/02/21) Diverticulosis, repeat in 5 years Family History Father , PROSTATE Cancer UNCLE PROSTATE CANCER Mother , AT AGE 64 Emphysema lung Social History Alcohol intake: current Alcohol intake frequency: holidays/special occasions only Adopted: No Caregiver/support person: No Lives independently: No Household members: spouse Marital status: Current occupational status: employed Physical Exam Const: COMMON NORMALS: no acute distress and patient oriented x3 EXAM LIMITATIONS: no altered mental status GENERAL APPEARANCE: cooperative, comfortable and well developed ORIENTATION/CONSCIOUSNESS: Yes awake, Yes oriented to person, Yes oriented to place and Yes oriented to time HENMT: COMMON NORMALS: normocephalic and atraumatic HEAD & SCALP: normocephalic and atraumatic Eye: COMMON NORMALS: Equal, round and reactive pupils present and EOMs intact bilaterally PUPIL: Yes Equal, round and reactive pupils present Neck/C-Spine: COMMON NORMALS: full ROM and supple Resp: COMMON NORMALS: normal respiratory effort, No retractions and clear to auscultation bilaterally AUSCULTATION: clear to auscultation bilaterally Cardio: COMMON NORMALS: regular rate and regular rhythm RATE: regular rate RHYTHM: regular rhythm GI: COMMON NORMALS: Soft to palpation PALPATION: Yes Soft to palpation and Yes Tenderness to palpation present (GI) Details: LLQ Back/Pelvis: COMMON NORMALS: thoraco-lumbar ROM normal Extremity: COMMON NORMALS: normal to inspection and full ROM Neuro: COMMON NORMALS: patient oriented x3 SENSORIUM/ORIENTATION: Yes oriented to person, Yes oriented to place and Yes oriented to time Course ED course: Patient comes in complaining of left lower quadrant abdominal pain that started about a week ago. Associated with constipation and vomiting. States the pain is getting worse over the last few days. States he is 3 months post sigmoidectomy from diverticulitis. On physical exam his abdomen is soft nondistended. He does have tenderness palpation of the left lower quadrant. Will check labs, CT scan, give IV fluids, treat pain with IV morphine, treat nausea with IV Reglan, and reassess. Reevaluation(s): Reevaluation #1: Reassessment I talked to the patient about the test results. I discussed the case with Dr. Roberts with surgery and we will place an NG tube and admit for further work-up and treatment of his partial/early bowel obstruction. Vital Signs: Vital signs: Vital Signs Temperature 97.7 F 10/30/21 09:03 Pulse Rate 54 L 10/30/21 09:24 Respiratory Rate 18 10/30/21 09:24 Blood Pressure 170/85 10/30/21 09:24 Pulse Oximetry 98 10/30/21 09:24 MDM - Abdominal Pain Lab Data: Labs: Lab Results 10/30/21 10/30/21 10/30/21 09:31 09:31 09:31 WBC 10.2 10^3/uL H 10 ^3/uL (4.0-10.0) RBC 4.96 10^6/uL 10^6 /uL (4.1-5.3) Hgb 16.0 g/dL g/dL (11.7-16.6) Hct 44.9 % % (42.0-52.0) MCV 90.5 fl fl (80-94) MCH 32.3 pg pg (28.0-34.0) MCHC 35.6 g/dL g/dL (30.0-36.0) RDW 12.5 % % (12.1-15.1) Plt Count 208 10^3/cmm 10^3 /cmm (130-400) MPV 9.2 fL fL (7.4-10.4) Neut % (Auto) 83.4 % % Lymph % (Auto) 12.5 % % [place] % (Auto) 3.5 % % Eos % (Auto) 0.1 % % Baso % (Auto) 0.3 % % Neut # (Auto) 8.54 10^3/uL H 10 ^3/uL (1.8-7.7) Lymph # (Auto) 1.3 10^3/uL 10^3/ uL (0.8-4.8) [place] # (Auto) 0.4 10^3/uL 10^3/ uL (0.2-0.9) Eos # (Auto) 0.0 10^3/uL 10^3/ uL (0.0-0.8) Baso # (Auto) 0.0 10^3/uL 10^3/ uL (0.0-0.1) Nucleated RBC % (a uto) 0 % % Nucleated RBCs # 0.0 /100WBC /100W BC Sodium 136 mmol/L mmol/L (136-145) Potassium 3.5 mmol/L mmol/L (3.5-5.1) Chloride 98 mmol/L mmol/L (98-107) Carbon Dioxide 22 mmol/L mmol/L (22-29) Anion Gap 19.5 H (5-19) BUN 8 mg/dL mg/dL (8-23) Creatinine 0.7 mg/dL mg/dL (0.7-1.2) GFR Calculation 114.6 mL/min mL/m in (90-130) Glucose 134 mg/dL H mg/dL (65-115) Calculated Osmolal ity 282 mOsm/kg L mOs m/kg (285-295) Lactate 2.0 mmol/L mmol/L (0.5-2.2) Calcium 8.9 mg/dL mg/dL (8.5-10.5) Total Bilirubin 0.8 mg/dL mg/dL (0.15-1.2) AST 17 U/L U/L (0-40) ALT 14 U/L U/L (0-41) Alkaline Phosphata se 98 IU/L IU/L (40-130) Total Protein 8.1 g/dL g/dL (6.6-8.7) Albumin 5.2 g/dL g/dL (3.5-5.2) Globulin 2.9 g/dL g/dL (1.3-4.6) Lipase 14 U/L U/L (13-60) Discharge Plan Discharge Patient Disposition: Admitted As Inpatient Clinical Impression: Bowel obstruction Qualifiers: Intestinal obstruction type: unspecified Intestinal obstruction extent: partial Qualified Code(s): K56.600 - Partial intestinal obstruction, unspecified as to cause Condition: Stable Coding Level of Care Code 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
[2021-10-30 09:38] LABS: Basophils % 0.3 %; Eosinophils % 0.1 %; Hematocrit 44.9 % (42.0-52.0); Lymphocytes # 1.3 10^3/uL (0.8-4.8); Lymphocytes % 12.5 %; Mean Corpuscular HGB Conc 35.6 g/dL (30.0-36.0); Mean Corpuscular Hemoglobin 32.3 pg (28.0-34.0); Mean Corpuscular Volume 90.5 fl (80-94); Mean Platelet Volume 9.2 fL (7.4-10.4); Monocytes # 0.4 10^3/uL (0.2-0.9); Monocytes % 3.5 %; Neutrophils # 8.54 10^3/uL (1.8-7.7); Neutrophils % 83.4 %; Nucleated Red Blood Cells % 0 %; Platelet Count 208 10^3/cmm (130-400); Red Blood Count 4.96 10^6/uL (4.1-5.3); Red Cell Distribution Width 12.5 % (12.1-15.1); White Blood Count 10.2 10^3/uL (4.0-10.0)
[2021-10-30] MEDS: sodium chloride 0.9% 1,000 ML 999 ML IV (09:48)
[2021-10-30] MEDS: morphine 4 mg/mL SDV 1 mL IVP (09:48)
[2021-10-30] MEDS: metoclopramide 5 mg/mL SDV 2 mL 10 MG IVP (09:48)
[2021-10-30 09:59] LABS: Alanine Aminotransferase 14 U/L (0-41); Albumin Level 5.2 g/dL (3.5-5.2); Alkaline Phosphatase 98 IU/L (40-130); Anion Gap 19.5 (5-19); Aspartate Amino Transferase 17 U/L (0-40); Blood Urea Nitrogen 8 mg/dL (8-23); Calcium 8.9 mg/dL (8.5-10.5); Carbon Dioxide 22 mmol/L (22-29); Chloride 98 mmol/L (98-107); Globulin 2.9 g/dL (1.3-4.6); Glomerular Filtration Rate 114.6 mL/min (90-130); Glucose 134 mg/dL (65-115); Lipase 14 U/L (13-60); Osmolality Calculated 282 mOsm/kg (285-295); Potassium 3.5 mmol/L (3.5-5.1); Sodium 136 mmol/L (136-145); Total Bilirubin 0.8 mg/dL (0.15-1.2); Total Protein 8.1 g/dL (6.6-8.7)
[2021-10-30] MEDS: iohexol 300 mg/mL 100 mL Btl IV (10:17)
[2021-10-30 10:39] VITALS: BP 144/73; PULSE 69; O2SAT 97
[2021-10-30 14:04] VITALS: BMI 27.1
--- NOTE | 2021-10-30 14:35 | PC.NURSE ---
Dr. Roberts in to see patient, discussed plan of care to start on clear liquids and if emesis occurs place NG tube per physician orders. Patient agrees with plan of care. Currently passing flatus.
[2021-10-30 15:03] VITALS: BP 153/61; PULSE 73; RESP 18; TEMP 36.6; O2SAT 96
--- NOTE | 2021-10-30 15:07 | PM.HP ---
Providers/Chief Complaint Admitting Physician: Hiren Roberts DO Primary Care Provider: Kinsey Pack DO Chief Complaint: constipation; previous sigmoidectomy History of Present Illness Tyler Cheek is a 61 year old male who underwent elective aparoscopic sigmoidectomy 3 months ago for diverticulitis. He did well postoperatively until 10 days ago. He reports that he ate some bad food at that time and had N/V. He then got better but has had to sick contacts of people with a stomach but. He reports that he developed LLQ abodminal pain a few days ago and had emesis just prior to arrival. His pain has since subsided. His pain was sharp, constant, located in the left lower quadrant and did not radiate. Denies fever/chills. Review of Systems General: Reports: 10 or more systems reviewed and unremarkable except in HPI and below Medications/Allergies Home Medications Medication Instructions Recorded Confirmed Last Taken Type meloxicam 15 mg tablet 15 mg PO DAILY PRN 09/09/20 10/30/21 07/18/21 History sennosides-docusate sodium [Senna 1 tab-cap PO BID #30 tab 07/23/21 10/30/21 10/30/21 03:00 Rx with Docusate Sodium] sildenafil 100 mg tablet 100 mg PO DAILY PRN #20 tab 09/21/21 10/30/21 Unknown Rx acetaminophen [Tylenol Ex Str 1,000 mg PO Q4H PRN 10/30/21 10/30/21 Unknown History Rapid Release] aspirin [Aspir-81] 81 mg PO DAILY 10/30/21 10/30/21 Unknown History docusate sodium [Colace] 100 mg PO DAILY 10/30/21 10/30/21 10/30/21 06:30 History finasteride 5 mg PO BEDTIME 10/30/21 10/30/21 10/29/21 History hydrocodone-acetaminophen 1 tab PO QID PRN 10/30/21 10/30/21 Unknown History ibuprofen 400 mg PO Q4H PRN 10/30/21 10/30/21 Unknown History magnesium hydroxide [Milk of 30 ml PO DAILY PRN 10/30/21 10/30/21 10/30/21 06:30 History Magnesia] mineral oil [Mineral Oil Laxative] 15 ml PO DAILY PRN 10/30/21 10/30/21 10/30/21 07:30 History multivitamin 1 tab PO DAILY 10/30/21 10/30/21 Unknown History sodium phosphates [Fleet Enema] 118 ml CO DAILY PRN 10/30/21 10/30/21 10/30/21 History tamsulosin 0.8 mg PO BEDTIME 10/30/21 10/30/21 Unknown History Allergies Allergy/AdvReac Type Severity Reaction Status Date / Time No Known Allergies Allergy Verified 10/30/21 09:47 PFSH Acute PFSH: Medical History BPH loc w urin obs/LUTS Chronic prostatitis COVID-19 Diverticulitis Erectile dysfunction Surgical History H/O laminectomy H/O vasectomy History of left hip replacement S/P laparoscopic-assisted sigmoidectomy (07/19/21) Status post colonoscopy (02/02/21) Diverticulosis, repeat in 5 years Family History Father , PROSTATE Cancer UNCLE PROSTATE CANCER Mother , AT AGE 64 Emphysema lung Social History Alcohol intake: current Alcohol intake frequency: holidays/special occasions only Adopted: No Caregiver/support person: No Lives independently: No Household members: spouse Marital status: Current occupational status: employed Vitals/I&O/Wt Last Vital Signs Temp 97.7 F 10/30/21 09:03 Pulse 69 10/30/21 10:39 Resp 18 10/30/21 09:24 BP 144/73 10/30/21 10:39 Pulse Ox 97 10/30/21 10:39 10/30/21 10/30/21 10/30/21 06:59 14:59 22:59 Intake Total 1000 / 1000 Balance 1000 / 1000 Weight last 48 hrs Weight 200 lb Weight 199 lb Physical Exam Const: COMMON NORMALS: no acute distress, average body habitus and patient oriented x3 HENMT: COMMON NORMALS: normocephalic and atraumatic Eye: COMMON NORMALS: Equal, round and reactive pupils present and EOMs intact bilaterally Chest: COMMONS NORMALS: normal inspection of the chest and normal palpation of entire chest wall Resp: COMMON NORMALS: normal respiratory effort, No retractions and No use of accessory muscles Cardio: COMMON NORMALS: no JVD, regular rate and regular rhythm GI: OTHER: Soft, NT, ND, no g/r/m Extremity: COMMON NORMALS: normal to inspection and full ROM Neuro: COMMON NORMALS: patient oriented x3 and no focal motor deficits Psych: COMMON NORMALS: mental status grossly normal and Normal thought process present Data : 10/30/21 09:31 10/30/21 09:31 A&P Assessment and plan (1) Partial bowel obstruction: Gastroenteritis vs Partial Large Bowel obstruction at the anastomosis. 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
[2021-10-30] MEDS: HYDROcodone-acetaminophen 5-325 mg Tablet 1 TAB PO (15:40)
[2021-10-30] MEDS: D5-NS 0.45% + KCL 20 mEq 20 MEQ/1,000 ML BAG 75 MEQ IV (15:40)
[2021-10-30] MEDS: enoxaparin 40 mg/0.4 mL Syringe SUBCUT (15:40)
[2021-10-30 16:00] VITALS: BP 140/84; PULSE 58; RESP 18; TEMP 36.8; O2SAT 92
[2021-10-30 20:00] VITALS: BP 158/85; PULSE 71; RESP 17; TEMP 36.6; O2SAT 94
[2021-10-30] MEDS: sennosides 8.6 mg Tablet 17.2 MG PO (21:11)
[2021-10-31] VITALS: BP 155/88; PULSE 70; RESP 18; TEMP 36.4; O2SAT 95
[2021-10-31] MEDS: HYDROcodone-acetaminophen 5-325 mg Tablet 1 TAB PO ×4 (02:05→22:44)
[2021-10-31 04:00] VITALS: BP 141/83; PULSE 65; RESP 17; TEMP 36.6; O2SAT 93
[2021-10-31] MEDS: D5-NS 0.45% + KCL 20 mEq 20 MEQ/1,000 ML BAG 75 MEQ IV ×2 (04:29→17:44)
[2021-10-31 04:35] LABS: Basophils % 0.3 %; Eosinophils % 0.4 %; Hematocrit 39.8 % (42.0-52.0); Hemoglobin 13.7 g/dL (11.7-16.6); Lymphocytes # 1.8 10^3/uL (0.8-4.8); Lymphocytes % 26.7 %; Mean Corpuscular HGB Conc 34.4 g/dL (30.0-36.0); Mean Corpuscular Hemoglobin 31.9 pg (28.0-34.0); Mean Corpuscular Volume 92.6 fl (80-94); Mean Platelet Volume 9.6 fL (7.4-10.4); Monocytes # 0.5 10^3/uL (0.2-0.9); Neutrophils # 4.51 10^3/uL (1.8-7.7); Neutrophils % 65.5 %; Nucleated Red Blood Cells % 0 %; Platelet Count 192 10^3/cmm (130-400); Red Cell Distribution Width 12.5 % (12.1-15.1); White Blood Count 6.9 10^3/uL (4.0-10.0)
[2021-10-31 04:52] LABS: Anion Gap 12.8 (5-19); Blood Urea Nitrogen 7 mg/dL (8-23); Calcium 8.2 mg/dL (8.5-10.5); Carbon Dioxide 27 mmol/L (22-29); Chloride 102 mmol/L (98-107); Glucose 119 mg/dL (65-115); Magnesium 1.9 mg/dL (1.7-2.3); Osmolality Calculated 285 mOsm/kg (285-295); Phosphorus 2.9 mg/dL (2.5-4.5); Potassium 3.8 mmol/L (3.5-5.1); Sodium 138 mmol/L (136-145)
[2021-10-31 08:00] VITALS: BP 151/91; PULSE 67; RESP 18; TEMP 36.6; O2SAT 95
[2021-10-31] MEDS: pantoprazole DR 40 mg Tablet PO (10:08)
[2021-10-31 12:00] VITALS: BP 156/76; PULSE 62; RESP 18; TEMP 36.7; O2SAT 95
--- NOTE | 2021-10-31 13:57 | P.PN_ITS ---
Subjective Medications: Medication Review Details: Pain controlled. No N/V. Patient reports having curly cue small thin stools overnight Vitals/I&O/Wt Last Vital Signs Temp 98.1 F 10/31/21 12:00 Pulse 62 10/31/21 12:00 Resp 18 10/31/21 12:00 BP 156/76 10/31/21 12:00 Pulse Ox 95 10/31/21 12:00 10/30/21 10/31/21 10/31/21 22:59 06:59 14:59 Intake Total 240 / 1240 961.25 / 2201.25 480 / 480 Output Total 850 / 850 350 / 1200 Balance -610 / 390 611.25 / 1001.25 480 / 480 Weight last 48 hrs Weight 200 lb Weight 199 lb Physical Exam Const: COMMON NORMALS: no acute distress, average body habitus and patient oriented x3 GI: OTHER: Soft, NT, ND, no g/r/m Neuro: COMMON NORMALS: patient oriented x3 Data : 10/31/21 03:12 10/31/21 03:12 A&P Assessment and plan (1) Partial bowel obstruction: Gastroenteritis vs Partial Large Bowel obstruction at the anastomosis. 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
[2021-10-31 16:00] VITALS: BP 158/77; PULSE 62; RESP 14; TEMP 36.5; O2SAT 96
[2021-10-31] MEDS: magnesium citrate Btl 296 mL 150 ML PO (16:03)
[2021-10-31] MEDS: enoxaparin 40 mg/0.4 mL Syringe SUBCUT (16:03)
[2021-10-31 19:49] VITALS: BP 156/76; PULSE 63; RESP 17; TEMP 36.4; O2SAT 96
[2021-10-31] MEDS: tamsulosin 0.4 mg Capsule 0.8 MG PO (20:17)
[2021-10-31] MEDS: sennosides 8.6 mg Tablet 17.2 MG PO (20:17)
[2021-10-31] MEDS: ondansetron 2 mg/ML SDV 2 mL 4 MG IVP (21:10)
[2021-11-01] VITALS (7 sets, daily range): BP systolic 129–167; BP diastolic 75–84; PULSE 59–79; RESP 16–18; TEMP 36.4–36.9; O2SAT 94–96
[2021-11-01] MEDS: HYDROcodone-acetaminophen 5-325 mg Tablet 1 TAB PO ×5 (02:59→22:07)
[2021-11-01 06:25] LABS: Basophils % 0.1 %; Hemoglobin 14.8 g/dL (11.7-16.6); Lymphocytes # 1.6 10^3/uL (0.8-4.8); Lymphocytes % 21.4 %; Mean Corpuscular HGB Conc 35.2 g/dL (30.0-36.0); Mean Corpuscular Hemoglobin 32.7 pg (28.0-34.0); Mean Corpuscular Volume 92.7 fl (80-94); Mean Platelet Volume 9.5 fL (7.4-10.4); Monocytes # 0.4 10^3/uL (0.2-0.9); Monocytes % 5.4 %; Neutrophils # 5.41 10^3/uL (1.8-7.7); Neutrophils % 72.8 %; Nucleated Red Blood Cells % 0 %; Platelet Count 202 10^3/cmm (130-400); Red Blood Count 4.53 10^6/uL (4.1-5.3); Red Cell Distribution Width 12.5 % (12.1-15.1); White Blood Count 7.4 10^3/uL (4.0-10.0)
[2021-11-01 06:48] LABS: Blood Urea Nitrogen 6 mg/dL (8-23); Calcium 8.3 mg/dL (8.5-10.5); Carbon Dioxide 25 mmol/L (22-29); Chloride 101 mmol/L (98-107); Glucose 121 mg/dL (65-115); Osmolality Calculated 287 mOsm/kg (285-295); Phosphorus 3.6 mg/dL (2.5-4.5); Sodium 139 mmol/L (136-145)
[2021-11-01] MEDS: ondansetron 2 mg/ML SDV 2 mL 4 MG IVP ×4 (07:38→22:07)
[2021-11-01] MEDS: pantoprazole DR 40 mg Tablet PO (07:41)
[2021-11-01] MEDS: tamsulosin 0.4 mg Capsule 0.8 MG PO (07:41)
[2021-11-01] MEDS: D5-NS 0.45% + KCL 20 mEq 20 MEQ/1,000 ML BAG 75 MEQ IV ×2 (09:20→21:23)
--- NOTE | 2021-11-01 10:36 | PC.CHAP ---
Pastoral Care Encounter/Spiritual Assessment Type of Contact [] Declined nail machine operator visit [] Patient/Family/Request visit [] Outpatient visit [] Follow-up visit [] Physician referral [] Code/Alert [x [] Out of room [] Palliative care [] [] Receiving care in room [] Pre-surgical visit [] Trauma [] Long length of stay [] ICU visit [] Other: Relational/Emotional Strength [x] Patient feels connected with others/family/visitors/staff [] Distress [] Loneliness/isolation [] Abandonment Spirituality of Patient x] Person of Bia [x] Attends Hindu of their Bia [x] Believes in Prayer [] Reads Bible or Buddhism materials [] There are Spiritual issues to be addressed Halal Butcher Interventions [x] Prayer [x] Active listening [x] Non-anxious presence [x] Spiritual/emotional support [] Crisis/trauma care [x Spiritual counseling [] Bereavement support [] Provided bereavement packet [] Provided Bible/devotional materials [] Provided toy/stuffed animal, coloring book to patient or family member [] Provided Communion [] Anointing/[place] [] Salvation x] Completed spiritual assessment [] Other: Impact on Illness or Injury [] Angry [] Fearful [] Anxious [] Often cries [] Exhaustion [] Unable to work [] Unable to attend orthodoxy [] Unable to walk/stand [] Unable to read [] Unable to drive [] Unable to eat/drink [] Unable to sleep [] Unable to be with family [] Patient intubated [] Other: Summary Time spent with patien 10 min patient has shana
[2021-11-01] MEDS: enoxaparin 40 mg/0.4 mL Syringe SUBCUT (14:34)
--- NOTE | 2021-11-01 15:37 | PM.PN ---
Subjective Medications: Medication Review Details: Pain controlled. No N/V currently, but he did have some nausea overnight. BM early yesterday, but no flatus since getting a half dose of magnesium citrate yesterday. Vitals/I&O/Wt Last Vital Signs Temp 98.1 F 11/01/21 12:00 Pulse 61 11/01/21 12:00 Resp 18 11/01/21 12:00 BP 167/84 11/01/21 12:00 Pulse Ox 96 11/01/21 12:00 11/01/21 11/01/21 11/01/21 06:59 14:59 22:59 Intake Total 1480 / 1480 Output Total 300 / 300 Balance -300 / 1223.75 1480 / 1480 Physical Exam Const: COMMON NORMALS: no acute distress, average body habitus and patient oriented x3 GI: OTHER: Soft, NT, ND, no g/r/m Neuro: COMMON NORMALS: patient oriented x3 Data : 11/01/21 05:00 11/01/21 05:00 A&P Assessment and plan (1) Partial bowel obstruction: Gastroenteritis vs Partial Large Bowel obstruction at the anastomosis. full liquid diet Dr. Jackson to return tomorrow Add xanax- patient requested for history of anxiety Status: Acute (2) Gastroenteritis: See above Status: Acute Attestations Medical Necessity Statement*: needs to tolerate soft diet before discharge Coding Level of Care Code Acute Check Writing Machine Operator for Awais Fwcherie Diagnoses Partial bowel obstruction K56.600 Gastroenteritis K52.9
[2021-11-01] MEDS: ALPRAZolam 0.5 mg Tablet 0.25 MG PO (17:40)
[2021-11-01] MEDS: ALPRAZolam 0.5 mg Tablet PO (22:07)
[2021-11-02] VITALS: BP 151/89; PULSE 68; RESP 16; TEMP 36.6; O2SAT 95
[2021-11-02 04:00] VITALS: BP 157/77; PULSE 62; RESP 16; TEMP 36.4; O2SAT 95
[2021-11-02] MEDS: ALPRAZolam 0.5 mg Tablet 0.25 MG PO ×2 (04:50→18:15)
[2021-11-02] MEDS: ondansetron 2 mg/ML SDV 2 mL 4 MG IVP (04:50)
[2021-11-02 06:18] LABS: Basophils % 0.3 %; Eosinophils % 0.1 %; Hematocrit 42.8 % (42.0-52.0); Hemoglobin 14.8 g/dL (11.7-16.6); Lymphocytes # 1.8 10^3/uL (0.8-4.8); Lymphocytes % 18.3 %; Mean Corpuscular HGB Conc 34.6 g/dL (30.0-36.0); Mean Corpuscular Hemoglobin 31.6 pg (28.0-34.0); Mean Corpuscular Volume 91.3 fl (80-94); Mean Platelet Volume 9.5 fL (7.4-10.4); Monocytes # 0.6 10^3/uL (0.2-0.9); Monocytes % 6.4 %; Neutrophils # 7.19 10^3/uL (1.8-7.7); Neutrophils % 74.6 %; Nucleated Red Blood Cells % 0 %; Platelet Count 211 10^3/cmm (130-400); Red Blood Count 4.69 10^6/uL (4.1-5.3); Red Cell Distribution Width 12.4 % (12.1-15.1); White Blood Count 9.6 10^3/uL (4.0-10.0)
[2021-11-02 06:39] LABS: Anion Gap 14.9 (5-19); Blood Urea Nitrogen 7 mg/dL (8-23); Calcium 8.2 mg/dL (8.5-10.5); Carbon Dioxide 26 mmol/L (22-29); Chloride 99 mmol/L (98-107); Glomerular Filtration Rate 114.6 mL/min (90-130); Glucose 127 mg/dL (65-115); Osmolality Calculated 282 mOsm/kg (285-295); Phosphorus 3.1 mg/dL (2.5-4.5); Potassium 3.9 mmol/L (3.5-5.1); Sodium 136 mmol/L (136-145)
[2021-11-02 08:00] VITALS: BP 196/96; PULSE 69; RESP 18; TEMP 36.4; O2SAT 96
--- NOTE | 2021-11-02 08:02 | PC.NURSE ---
patient complained of pain. high bp 196/96 reported to the nurse
[2021-11-02] MEDS: pantoprazole DR 40 mg Tablet PO (08:12)
[2021-11-02] MEDS: HYDROcodone-acetaminophen 5-325 mg Tablet 1 TAB PO ×3 (08:12→18:15)
[2021-11-02] MEDS: tamsulosin 0.4 mg Capsule 0.8 MG PO (08:14)
--- NOTE | 2021-11-02 09:34 | PC.NURSE ---
Patient had a small amount of stool this morning.
[2021-11-02 11:50] VITALS: BP 140/69; PULSE 63; RESP 16; TEMP 36.7; O2SAT 94
[2021-11-02] MEDS: enoxaparin 40 mg/0.4 mL Syringe SUBCUT (14:05)
--- NOTE | 2021-11-02 14:50 | PC.NURSE ---
Patient is ambulating in the hallway at this time.
[2021-11-02 16:00] VITALS: BP 130/76; PULSE 62; RESP 15; TEMP 36.7; O2SAT 97
--- NOTE | 2021-11-02 19:05 | PC.NURSE ---
Repot to Gabriela Soriano RN at this time.
[2021-11-02 19:52] VITALS: BP 123/74; PULSE 61; RESP 16; TEMP 36.7; O2SAT 95
[2021-11-03] VITALS: BP 133/78; PULSE 56; RESP 15; TEMP 36.6; O2SAT 95
[2021-11-03] MEDS: ALPRAZolam 0.5 mg Tablet PO (02:44)
[2021-11-03 04:00] VITALS: BP 154/83; PULSE 56; RESP 19; TEMP 36.6; O2SAT 95
[2021-11-03] MEDS: ondansetron 2 mg/ML SDV 2 mL 4 MG IVP (05:51)
[2021-11-03] MEDS: HYDROcodone-acetaminophen 5-325 mg Tablet 1 TAB PO (05:52)
[2021-11-03 07:39] VITALS: BP 128/74; PULSE 57; RESP 17; TEMP 36.5; O2SAT 94
[2021-11-03] MEDS: tamsulosin 0.4 mg Capsule 0.8 MG PO (08:15)
[2021-11-03] MEDS: pantoprazole DR 40 mg Tablet PO (08:15)
[2021-11-03 11:47] VITALS: BP 127/78; PULSE 87; RESP 17; TEMP 36.9; O2SAT 98
[2021-11-03 15:21] VITALS: BP 133/78; PULSE 71; RESP 17; TEMP 36.9; O2SAT 94
[2021-11-03 15:50] VITALS: BP 133/78; PULSE 71; RESP 17; TEMP 36.9; O2SAT 94
--- NOTE | 2021-11-03 16:41 | P.PN_ITS ---
Subjective Subjective: Interval history: Patient had episode of cramping abdominal pain last night which resolved after he started passing flatus. He denies any nausea or vomiting but complains of abdominal ache Vitals/I&O/Wt Last Vital Signs Temp 98.4 F 11/03/21 15:50 Pulse 71 11/03/21 15:50 Resp 17 11/03/21 15:50 BP 133/78 11/03/21 15:50 Pulse Ox 94 11/03/21 15:50 11/03/21 11/03/21 11/03/21 06:59 14:59 22:59 Intake Total 240 / 1700 720 / 720 Output Total 450 / 450 Balance -210 / 1250 720 / 720 Physical Exam Narrative: EXAM NARRATIVE: Abdomen: Soft, nontender, nondistended Data : 11/02/21 05:24 11/02/21 05:24 A&P Assessment and plan (1) Partial bowel obstruction: Gastroenteritis vs Partial Large Bowel obstruction at the anastomosis. Overall patient is doing better, no nausea or vomiting still has some abdominal pain DC home today with Yudith Lopez senna S Follow-up 10 to 14 days Advised to stay on a liquid to soft diet Status: Acute (2) Gastroenteritis: See above Status: Acute Attestations Medical Necessity Statement*: DC home today Coding Level of Care Code Acute Heater Operator Helper for Awais Herman Diagnoses Partial bowel obstruction K56.600 Gastroenteritis K52.9
--- NOTE | 2021-11-03 16:44 | PM.DCS ---
Discharge Providers Date of Admission: 10/30/21 11:39 Date of Discharge: November 03, 2021 Attending Provider at Admission: Hiren Roberts DO Attending Provider at Discharge: Hiren Roberts DO Primary Care Provider: Kinsey Pack DO Diagnoses at Discharge Discharge Diagnosis (1) Partial bowel obstruction: Status: Acute (2) Gastroenteritis: Status: Acute Reason for Visit Reason for Visit: constipation; previous sigmoidectomy Hospital Course Hospital Course This is a 61-year-old gentleman known undergone laparoscopic sigmoid colectomy on 07/19/2021. Patient had done well postop and had previously seen him in the office for routine follow-up and had been doing well. Unfortunately he presented to the ER on 10/30/2021 with complaints of abdominal pain, who presented to the ER on 10/30/2021 with nausea and vomiting which he thought was secondary to gastroenteritis from eating bad food. CT scan in the ER showed possible partial bowel obstruction at the anastomosis and he was therefore admitted for observation. Over the course of the next 48 hours he was managed with bowel rest and slowly started on a liquid diet. At time of discharge he was tolerating a full liquid diet still had some abdominal pain but was passing flatus and had bowel movements. His vital signs are stable and his abdominal exam was benign Discharge Data Data Completed and Pending: Completed Studies During Hospitalization Category Date Time Status CT abdomen pelvis w con* [id number] Urge nt Cat Scan 10/30/21 09:29 Completed Vitals: Last Vital Signs Temp 98.4 F 11/03/21 15:50 Pulse 71 11/03/21 15:50 Resp 17 11/03/21 15:50 BP 133/78 11/03/21 15:50 Pulse Ox 94 11/03/21 15:50 Discharge Plan Discharge Patient Disposition: Home Condition: Stable Prescriptions: New hydrocodone-acetaminophen 5-325 mg tablet 1 tab PO Q6H PRN (Reason: pain) Qty: 20 RF: 0 Zofran 4 mg tablet 4 mg PO Q6H PRN (Reason: nausea and vomiting) Qty: 20 RF: 0 Senna with Docusate Sodium 8.6-50 mg tablet 1 tab-cap PO BID Qty: 30 RF: 0 Xanax 0.5 mg tablet 0.5 mg PO DAILY PRN (Reason: anxiety) Qty: 10 RF: 0 Continued meloxicam 15 mg tablet 15 mg PO DAILY PRN (Reason: ext med history shows last filled 05/14/21 90d/s ) RF: 0 sildenafil 100 mg tablet 100 mg PO DAILY PRN (Reason: sexual activity) Qty: 20 RF: 6 multivitamin Tablet 1 tab PO DAILY RF: 0 mineral oil Oil 15 ml PO DAILY PRN (Reason: Constipation) RF: 0 hydrocodone-acetaminophen 5-325 mg tablet 1 tab PO QID PRN (Reason: Pain) RF: 0 aspirin 81 mg Tablet,Delayed Release (Dr/Ec) 81 mg PO DAILY RF: 0 acetaminophen 500 mg Tablet 1,000 mg PO Q4H PRN (Reason: Pain) RF: 0 Milk of Magnesia 400 mg/5 mL Suspension 30 ml PO DAILY PRN (Reason: Constipation) RF: 0 Fleet Enema 19-7 gram/118 mL Enema 118 ml [place] DAILY PRN (Reason: Constipation) RF: 0 ibuprofen 200 mg Tablet 400 mg PO Q4H PRN (Reason: Pain) RF: 0 Colace 100 mg Capsule 100 mg PO DAILY RF: 0 tamsulosin 0.4 mg capsule 0.8 mg PO BEDTIME RF: 0 finasteride 5 mg tablet 5 mg PO BEDTIME RF: 0 sennosides-docusate sodium [Senna with Docusate Sodium] 8.6-50 mg tablet 1 tab-cap PO BID Qty: 30 RF: 0 Discharge Orders: Discharge Order (Routine); Ordered 11/03/21 Ordered By: Kameron Jackson Referrals: Kameron Jackson MD [Physician] - 11/15/21 9:35 am Kinsey Pack DO [Primary Care Provider] - 11/09/21 10:00 am Discharge Diet: GI Soft and Full LIquid Patient Instructions: Hydrocodone/Acetaminophen (By mouth), Alprazolam (By mouth), Laxative, Stool Softeners (By mouth), Ondansetron (By mouth), Gastroenteritis (GEN), Opioid Safety Discharge Attestations Time Spent in Discharge Care*: less than 30 min Quality Metrics Clinical Quality Measures During this hospital stay, did patient experience: None Coding Level of Care Code Acute Chg FW DC note Diagnoses Partial bowel obstruction K56.600 Gastroenteritis K52.9
--- NOTE | 2021-11-07 14:58 | PM.PN ---
Subjective Subjective: Interval history: Patient continues to have mild abdominal pain, no nausea or vomiting, passing flatus Vitals/I&O/Wt Last Vital Signs Temp 98.4 F 11/03/21 15:50 Pulse 71 11/03/21 15:50 Resp 17 11/03/21 15:50 BP 133/78 11/03/21 15:50 Pulse Ox 94 11/03/21 15:50 Physical Exam Narrative: EXAM NARRATIVE: Abdomen: Soft, nondistended, nontender Data : 11/02/21 05:24 11/02/21 05:24 A&P Assessment and plan (1) Partial bowel obstruction: Gastroenteritis vs Partial Large Bowel obstruction at the anastomosis. Overall patient is doing better, no nausea or vomiting still has some abdominal pain Patient would like to stay 1 more night to ensure resolution of symptoms prior to discharge DC IV fluids Senna S for bowel regimen Status: Acute (2) Gastroenteritis: See above Status: Resolved Attestations Medical Necessity Statement*: Possible bowel obstruction, DC home tomorrow, will need to stay 1 more night to ensure that his abdominal pain is well controlled Coding Level of Care Code Acute Glass Technician/Installer for Awais Herman Diagnoses Partial bowel obstruction K56.600 Gastroenteritis K52.9
== END 2021-11-03 15:51 | disposition home or self-care (01) | DRG 389 ==
LOC: ER 11:45 → MEDSURG 12:51
PROVIDERS: Admitting Provider Surgery; Emergency Provider Emergency Medicine; PCP Family Medicine; Visit Provider Surgery
DX: K56.600 Partial intestinal obstruction, unspecified as to cause (principal); N13.8 Other obstructive and reflux uropathy; K59.00 Constipation, unspecified; Z90.49 Acquired absence of other specified parts of digestive tract; N40.1 Benign prostatic hyperplasia with lower urinary tract symptoms; N41.1 Chronic prostatitis; Z86.16 Personal history of COVID-19; Z96.642 Presence of left artificial hip joint; K52.89 Other specified noninfective gastroenteritis and colitis; Z79.891 Long term (current) use of opiate analgesic; Z79.82 Long term (current) use of aspirin
CPT/HCPCS: 36415; 74177; 80048; 80053; 83605; 83690; 83735; 84100; 85025; 96361; 96372; 96374; 96375; 99285; J1650; J2270; J2405; J2765; J7030; Q9967

== ENCOUNTER 2022-03-28 06:59 | Day surgery (SDC) | payer BC, SELFPAY ==
[2022-03-25 13:28] VITALS: BMI 26.2
[2022-03-28 07:15] VITALS: BP 154/90; PULSE 70; RESP 18; TEMP 36.8; O2SAT 95
--- NOTE | 2022-03-28 08:08 | ANES.PREANE2 ---
Pre-Anesthetic Assessment Height/Weight: Height 1.83 m Weight 87.543 kg Temp Pulse Resp BP Pulse Ox 98.3 F 70 18 154/90 95 03/28/22 07:15 03/28/22 07:15 03/28/22 07:15 03/28/22 07:15 03/28/22 07:15 Preop Diagnosis: Status post sigmoid colectomy Operation Date: 03/28/22 08:45 Proposed Procedures p Sigmoidoscopy possible dilation 29366/k56.600(Not Applicable) - Kameron Jackson MD Familial anesthetic complications: None Was Beta Kenyatta taken within 24 hours: N/A Was Clonidine taken within 24 hours: N/A Last intake: Intake Last Liquid Date 03/27/22 Last Liquid Time 22:00 Last Solid Date 03/26/22 Last Solid Time 20:00 Social No alcohol and No tobacco Exam alert, oriented x 3, clear to auscultation bilaterally and regular rate & rhythm Airway Submandibular: within normal limits Mallampati: Class II Dentition: chipped Comments: Comments: Poor dentition, missing some teeth Pulmonary None reported CV/HEM None reported BPH Chronic prostatis Hepatic None reported GI None reported Metabolic None reported Musc/skel None reported Neuropsych None reported Anesthetic Plan ASA status: 2 Anesthesia: Anesthesia Evaluation and MAC Other: I discussed with the patient risks, goals, and benefits of MAC and general anesthesia. We discussed spectrum of MAC anesthesia including conversion to general as well as possibility of recall of intraoperative stimuli including discomfort/pain. Patient agrees to proceed with MAC. Risk of > 500 ml blood loss (7ml/kg in children): No Medications/Allergies Home Medications Medication Instructions Recorded Confirmed Last Taken Type meloxicam 15 mg tablet 15 mg PO DAILY PRN 09/09/20 03/28/22 03/27/22 History sildenafil 100 mg tablet 100 mg PO DAILY PRN #20 tab 09/21/21 03/28/22 1 Week Ago Rx ~03/21/22 acetaminophen 500 mg tablet 1,000 mg PO Q4H PRN 10/30/21 03/28/22 03/27/22 History aspirin 81 mg tablet,delayed 81 mg PO DAILY 10/30/21 03/28/22 3 Weeks Ago History release ~03/07/22 docusate sodium 100 mg capsule 100 mg PO DAILY 10/30/21 03/28/22 03/27/22 History (Colace) ibuprofen 200 mg tablet 400 mg PO Q4H PRN 10/30/21 03/28/22 1 Month Ago History ~02/26/22 multivitamin 1 tab PO DAILY 10/30/21 03/28/22 03/25/22 History sodium phosphates 19 gram-7 118 ml [place] DAILY PRN 10/30/21 03/28/22 03/28/22 05:00 History gram/118 mL enema (Fleet Enema) ondansetron HCl 4 mg tablet 4 mg PO Q6H PRN #20 tab 11/03/21 03/28/22 2 Months Ago Rx (Zofran) ~01/26/22 sennosides 8.6 mg-docusate sodium 1 tab-cap PO BID #30 tab 11/03/21 03/28/22 3 Weeks Ago Rx 50 mg tablet (Senna with Docusate ~03/07/22 Sodium) pantoprazole 40 mg tablet,delayed 40 mg PO DAILY 42 Days #42 tab 12/24/21 03/28/22 1 Month Ago Rx release (Protonix) ~02/26/22 finasteride 5 mg tablet 5 mg PO BEDTIME #90 tab 03/07/22 03/28/22 03/27/22 Rx tamsulosin 0.4 mg capsule 0.4 mg PO BID 03/25/22 03/28/22 03/27/22 History Allergies Allergy/AdvReac Type Severity Reaction Status Date / Time No Known Allergies Allergy Verified 03/21/22 10:12 PFSH Anesthesia Medical History BPH loc w urin obs/LUTS Chronic prostatitis COVID-19 Diverticulitis Erectile dysfunction Surgical History H/O laminectomy H/O vasectomy History of left hip replacement S/P laparoscopic-assisted sigmoidectomy (07/19/21) Status post colonoscopy (02/02/21) Diverticulosis, repeat in 5 years Family History Father , PROSTATE Cancer UNCLE PROSTATE CANCER Mother , AT AGE 64 Emphysema lung Social History (Reviewed 03/28/22 @ 08:08 by ELISSA Perez Smoking and tobacco status: former smoker Alcohol intake: current Alcohol intake frequency: holidays/special occasions only Adopted: No Caregiver/support person: No Lives independently: No Household members: spouse Marital status: Current occupational status: employed Data Anesthesia Cardiac Studies: No Data to Display
[2022-03-28] MEDS: Fleet Enema 133 mL Enema PR (08:27)
--- NOTE | 2022-03-28 08:55 | W.PM.OPSFHP ---
Same Day Surgery H&P Indication for Procedure/HPI DATE OF PROCEDURE: March 29, 2022 CHIEF COMPLAINT/INDICATIONFOR SURGICAL PROCEDURE: flex sig PREOP DIAGNOSIS: Status post sigmoid colectomy PLANNED PROCEDURE: Operation Date: 03/28/22 08:45 Proposed Procedures p Sigmoidoscopy possible dilation 71418/k56.600(Not Applicable) - Kameron Jackson MD Medications/Allergies* Home Medications Medication Instructions Recorded Confirmed Type meloxicam 15 mg tablet 15 mg PO DAILY PRN 09/09/20 03/28/22 History acetaminophen 500 mg tablet 1,000 mg PO Q4H PRN 10/30/21 03/28/22 History aspirin 81 mg tablet,delayed 81 mg PO DAILY 10/30/21 03/28/22 History release docusate sodium 100 mg capsule 100 mg PO DAILY 10/30/21 03/28/22 History (Colace) ibuprofen 200 mg tablet 400 mg PO Q4H PRN 10/30/21 03/28/22 History multivitamin 1 tab PO DAILY 10/30/21 03/28/22 History sodium phosphates 19 gram-7 118 ml [place] DAILY PRN 10/30/21 03/28/22 History gram/118 mL enema (Fleet Enema) tamsulosin 0.4 mg capsule 0.4 mg PO BID 03/25/22 03/28/22 History Allergies/Adverse Reactions Allergy/AdvReac Type Severity Reaction Status Date / Time No Known Allergies Allergy Verified 03/21/22 10:12 Pertinent History/Comorbid Conditions* Medical History (Updated 11/15/21 @ 12:08 by Kameron Jackson MD) BPH loc w urin obs/LUTS Chronic prostatitis COVID-19 Diverticulitis Erectile dysfunction Surgical History (Updated 03/28/22 @ 10:08 by Kameron Jackson MD) H/O laminectomy H/O sigmoidoscopy (03/28/22) anastomotic stricture H/O vasectomy History of left hip replacement S/P laparoscopic-assisted sigmoidectomy (07/19/21) Status post colonoscopy (02/02/21) Diverticulosis, repeat in 5 years Family History (Updated 08/28/20 @ 14:23 by DELMY Nguyen) Father, PROSTATE Mother, AT AGE 64 Emphysema lung Mother Cancer Father UNCLE PROSTATE CANCER Social History Smoking and tobacco status: former smoker Alcohol intake: current Alcohol intake frequency: holidays/special occasions only Adopted: No Caregiver/support person: No Lives independently: No Household members: spouse Marital status: Current occupational status: employed Pertinent Exam Findings alert and oriented x 3 Recommendations Surgery/Procedure today Coding Level of Care Code Acute Supervisor Filling And Packing for Awais Herman
[2022-03-28] MEDS: sodium chloride 0.9% 1,000 ML 30 ML IV (09:00)
--- NOTE | 2022-03-28 09:17 | SUR.OPER ---
balloon dilation used at 6, 7, 8 and 8, 9, 10
[2022-03-28 09:28] VITALS: BP 119/74; PULSE 60; RESP 16; TEMP 36.1; O2SAT 96
--- NOTE | 2022-03-28 09:31 | ANE.PACU2 ---
Documented by User: Oliva Melendez CRNA 03/28/22 09:31 Inpatient post-anesthesia follow up: Airway intact: Yes Vital signs: Temperature 98.3 F Pulse Rate 70 Respiratory Rate 18 Blood Pressure 154/90 Pulse Oximetry 95 Oxygen Delivery Me thod Room Air Oxygen Flow Rate Fraction of Inspir ed Oxygen Hydration adequate: Yes Nausea and vomiting: No Pain level: 1 Mental status: Baseline
[2022-03-28 09:38] VITALS: BP 132/75; PULSE 55; RESP 16; TEMP 36.1; O2SAT 95
== END 2022-03-28 10:15 | disposition home or self-care (01) ==
PROVIDERS: PCP Family Medicine; Visit Provider Surgery
PROC: 0DJD8ZZ Inspection of Lower Intestinal Tract, Via Natural or Artificial Opening Endoscopic (ICD-10-PCS; CPT 45330; principal; 2022-03-28 08:45)
DX: K56.600 Partial intestinal obstruction, unspecified as to cause (principal); N40.1 Benign prostatic hyperplasia with lower urinary tract symptoms; N13.8 Other obstructive and reflux uropathy; Z86.16 Personal history of COVID-19; Z87.891 Personal history of nicotine dependence; Z79.82 Long term (current) use of aspirin
CPT/HCPCS: 45338; 45340; 88305; J2704; J7030

== ENCOUNTER 2023-01-02 12:54 | Outpatient (CLI) | payer OTHER, SELFPAY ==
[2023-01-02 15:21] LABS: Prostate Specific AG Urology 1.12 ng/mL (0-4)
== END 2023-01-02 12:55 | disposition home or self-care (01) ==
LOC: LAB 12:59
PROVIDERS: PCP Family Medicine; Visit Provider Urology
DX: Z12.5 Encounter for screening for malignant neoplasm of prostate (principal)
CPT/HCPCS: 36415; 84153

== ENCOUNTER → 2023-01-05 15:27 | Outpatient (BNVA) | payer OTHER, SELFPAY | PROVIDERS: PCP Family Medicine; Visit Provider Urology | DX: Z12.5 Encounter for screening for malignant neoplasm of prostate (principal); N40.1 Benign prostatic hyperplasia with lower urinary tract symptoms; N52.9 Male erectile dysfunction, unspecified | CPT/HCPCS: 81003 ==

== ENCOUNTER 2023-04-15 13:01 | Emergency (ER) | payer OTHER, SELFPAY ==
[2023-04-15 13:03] VITALS: BP 189/83; PULSE 56; RESP 15; TEMP 36.6; O2SAT 98
--- NOTE | 2023-04-15 13:16 | XRR_ITS ---
PROCEDURE INFORMATION: Exam: XR Chest Exam date and time: 04/15/2023 1:28 PM Age: 63 years old Clinical indication: Shortness of breath; Additional info: HTN, TECHNIQUE: Imaging protocol: Radiologic exam of the chest. Views: 1 view. COMPARISON: CT abdomen pelvis w con* [id number] 10/30/2021 10:17 AM FINDINGS: Lungs: Unremarkable. No consolidation. Pleural spaces: Unremarkable. No pleural effusion. No pneumothorax. Heart/Mediastinum: Unremarkable. No cardiomegaly. Bones/joints: Unremarkable. XR/XR chest 1V portable [id number] IMPRESSION: No acute findings.
--- NOTE | 2023-04-15 13:17 | ED_ITS ---
HPI - Dizziness General: Chief Complaint: Dizziness Stated Complaint: high bp, nausea Time Seen by Provider: 04/15/23 13:10 History of Present Illness: HPI Narrative: Patient presents today with complaints of high blood pressure, nausea, dizziness. Patient said he has had this for several weeks but continues to feel worse. Patient does not take any blood pressure medicine. Patient does have a history of diverticulitis which she had surgery for in the past. Patient is asking for GI cocktail secondary to upset stomach and nausea. Review of Systems General: Reports: 10 or more systems reviewed and unremarkable except in HPI and below PFSH ED PFSH: Medical History BPH loc w urin obs/LUTS Chronic prostatitis COVID-19 Diverticulitis Erectile dysfunction Surgical History H/O laminectomy H/O sigmoidoscopy (03/28/22) anastomotic stricture H/O vasectomy History of left hip replacement S/P laparoscopic-assisted sigmoidectomy (07/19/21) Status post colonoscopy (02/02/21) Diverticulosis, repeat in 5 years Family History Father Cancer UNCLE PROSTATE CANCER Mother , AT AGE 64 Emphysema lung Social History Smoking and tobacco status: former smoker Alcohol intake: current Alcohol intake frequency: holidays/special occasions only Substance/Drug Use: unknown Adopted: No Caregiver/support person: No Lives independently: No Household members: spouse Marital status: Current occupational status: employed Physical Exam Const: COMMON NORMALS: no acute distress, average body habitus, patient oriented x3, no limitations, healthy appearing, alert and well nourished HENMT: COMMON NORMALS: normocephalic, atraumatic, hearing grossly normal bilaterally, external ears normal, Normal external nose present and moist oral mucous membranes HEAD & SCALP: normocephalic and atraumatic NOSE: Normal external nose present EXTERNAL EAR: Yes external ears normal Eye: COMMON NORMALS: Equal, round and reactive pupils present, EOMs intact bilaterally, conjunctivae normal and no scleral icterus CONJUNCTIVA: Yes conjunctivae normal PUPIL: Yes Equal, round and reactive pupils present Neck/C-Spine: COMMON NORMALS: full ROM, no lymphadenopathy, supple, no meningeal signs, no JVD and Thyroid normal THYROID: Thyroid normal Lymph: LYMPHATIC: no lymphadenopathy noted Chest: COMMONS NORMALS: normal inspection of the chest and normal palpation of entire chest wall Resp: COMMON NORMALS: normal respiratory effort, No retractions, No use of accessory muscles and clear to auscultation bilaterally AUSCULTATION: clear to auscultation bilaterally Cardio: COMMON NORMALS: no JVD, regular rate, regular rhythm, S1 normal heart sound present, S2 normal heart sound present, No gallops present (Cardio), No cl icks present (Cardio), No murmurs present (Cardio) and No rub (Cardio) RATE: regular rate RHYTHM: regular rhythm HEART SOUNDS: S1 normal heart sound present and S2 normal heart sound present GI: COMMON NORMALS: Normal to inspection, nondistended, normoactive bowel sounds present, Soft to palpation, non-tender, No hepatosplenomegaly present and no masses PALPATION: Yes Soft to palpation and Yes No hepatosplenomegaly present : COMMON NORMALS: Yes no CVA tenderness BLADDER/KIDNEY EXAM: Yes no CVA tenderness Back/Pelvis: COMMON NORMALS: no CVA tenderness Neuro: COMMON NORMALS: patient oriented x3 SENSORIUM/ORIENTATION: Yes alert MENINGEAL SIGNS: Yes no meningeal signs Course Vital Signs: Vital signs: Vital Signs Temperature 97.9 F 04/15/23 13:03 Pulse Rate 46 L 04/15/23 16:14 Respiratory Rate 16 04/15/23 16:14 Blood Pressure 170/82 04/15/23 16:14 Pulse Oximetry 96 04/15/23 16:14 Oxygen Delivery Me thod Room Air 04/15/23 16:14 MDM - Dizziness Medical Decision Making Patient presented to the ER with complaints of high blood pressure nausea and dizziness. Patient's had this problem for the last several weeks. Patient was given Zofran and Toradol for nausea which helped. Lab work was obtained which was unremarkable as well as chest x-ray and UA. Patient's blood pressure stayed stable but mildly elevated. Patient will will be referred back to his family practice doctor for further evaluation and treatment. Differential Diagnosis Unlikely adverse reaction to drug, benign paroxysmal positional vertigo, orthostatic hypotension, vertebral basilar insufficiency, cerebrovascular accident, acute vestibular neuronitis or transient cerebral ischemia Medical Records I reviewed the patient's medical records. Lab Data I reviewed the patient's lab results. 04/15/23 13:33 04/15/23 13:33 Radiology Impressions Chest X-Ray 04/15/23 13:16 IMPRESSION: No acute findings. Laboratory Results WBC 8.9 10^3/uL (4.0-10.0) 04/15/23 13:33 RBC 4.82 10^6/uL (4.1-5.3) 04/15/23 13:33 Hgb 15.5 g/dL (11.7-16.6) 04/15/23 13:33 Hct 44.5 % (42.0-52.0) 04/15/23 13:33 MCV 92.3 fl (80-94) 04/15/23 13:33 MCH 32.2 pg (28.0-34.0) 04/15/23 13:33 MCHC 34.8 g/dL (30.0-36.0) 04/15/23 13:33 RDW 11.9 % (12.1-15.1) L 04/15/23 13:33 Plt Count 210 10^3/cmm (130-400) 04/15/23 13:33 MPV 9.0 fL (7.4-10.4) 04/15/23 13:33 Neut % (Auto) 77.4 % 04/15/23 13:33 Lymph % (Auto) 17.1 % 04/15/23 13:33 [place] % (Auto) 4.7 % 04/15/23 13:33 Eos % (Auto) 0.2 % 04/15/23 13:33 Baso % (Auto) 0.4 % 04/15/23 13:33 Neut # (Auto) 6.88 10^3/uL (1.8-7.7) 04/15/23 13:33 Lymph # (Auto) 1.5 10^3/uL (0.8-4.8) 04/15/23 13:33 [place] # (Auto) 0.4 10^3/uL (0.2-0.9) 04/15/23 13:33 Eos # (Auto) 0.0 10^3/uL (0.0-0.8) 04/15/23 13:33 Baso # (Auto) 0.0 10^3/uL (0.0-0.1) 04/15/23 13:33 Nucleated RBC % (auto) 0 % 04/15/23 13:33 Nucleated RBCs # 0.0 /100WBC 04/15/23 13:33 Sodium 134 mmol/L (136-145) L 04/15/23 13:33 Potassium 3.7 mmol/L (3.5-5.1) 04/15/23 13:33 Chloride 96 mmol/L (98-107) L 04/15/23 13:33 Carbon Dioxide 24 mmol/L (22-29) 04/15/23 13:33 Anion Gap 17.7 (5-19) 04/15/23 13:33 BUN 8 mg/dL (8-23) 04/15/23 13:33 Creatinine 0.8 mg/dL (0.7-1.2) 04/15/23 13:33 GFR Calculation 97.6 mL/min (90-130) 04/15/23 13:33 Glucose 121 mg/dL (65-115) H 04/15/23 13:33 Calculated Osmolality 278 mOsm/kg (285-295) L 04/15/23 13:33 Calcium 9.2 mg/dL (8.5-10.5) 04/15/23 13:33 Total Bilirubin 0.6 mg/dL (0.15-1.2) 04/15/23 13:33 AST 15 U/L (0-40) 04/15/23 13:33 ALT < 5 U/L (0-41) 04/15/23 13:33 Alkaline Phosphatase 101 U/L (40-130) 04/15/23 13:33 Total Protein 8.0 g/dL (6.6-8.7) 04/15/23 13:33 Albumin 5.1 g/dL (3.5-5.2) 04/15/23 13:33 Globulin 2.9 g/dL (1.3-4.6) 04/15/23 13:33 Urine Color Straw (Yellow) 04/15/23 14:30 Urine Appearance Clear (CLEAR) 04/15/23 14:30 Urine pH 9 (5-7) H 04/15/23 14:30 Ur Specific [place] 1.015 (1.005-1.030) 04/15/23 14:30 Urine Protein Neg (Negative) 04/15/23 14:30 Urine Glucose (UA) Norm (Normal) 04/15/23 14:30 Urine Ketones 1+ (Negative) H 04/15/23 14:30 Urine Blood Neg (Negative) 04/15/23 14:30 Urine Nitrate Negative (Negative) 04/15/23 14:30 Urine Bilirubin Neg (Negative) 04/15/23 14:30 Prot Sulfosalicylic Acd Negative (Negative) 04/15/23 14:30 Urine Urobilinogen Norm mg/dL (Negative) 04/15/23 14:30 Ur Leukocyte Esterase Negative (Negative) 04/15/23 14:30 EKG Data EKG 1: I personally reviewed and interpreted this EKG as follows: EKG interpretation date: 04/15/23 EKG interpretation time: 13:22 Prior EKG tracings: not available for review Interpretation: You have changedEKG showed ventricular rate of 56 bpm, QRS duration 91, QTc of 430, supraventricular bradycardia, Discharge Plan Discharge Patient Disposition: Home Clinical Impression: Nausea, Dizziness Hypertension Qualifiers: Hypertension type: primary hypertension Qualified Code(s): I10 - Essential (primary) hypertension Condition: Stable Prescriptions: New promethazine 25 mg tablet 12.5 mg PO QID PRN (Reason: nausea and vomiting) Qty: 14 0RF No Action tamsulosin 0.4 mg capsule 0.4 mg PO BID Qty: 180 3RF sildenafil 100 mg tablet 100 mg PO DAILY PRN (Reason: sexual activity) Qty: 20 6RF Rx Instructions: 1 hour before intercourse, on empty stomach. NO NITROGLYCERIN! finasteride 5 mg tablet 5 mg PO DAILY Qty: 90 3RF multivitamin Tablet 1 tab PO DAILY aspirin 81 mg Tablet,Delayed Release (Dr/Ec) 81 mg PO DAILY acetaminophen 500 mg Tablet 1,000 mg PO Q4H PRN (Reason: Pain) Fleet Enema 19-7 gram/118 mL Enema 118 ml AK DAILY PRN (Reason: Constipation) ibuprofen 200 mg Tablet 400 mg PO Q4H PRN (Reason: Pain) docusate sodium [Colace] 100 mg Capsule 100 mg PO DAILY ondansetron HCl [Zofran] 4 mg tablet 4 mg PO Q6H PRN (Reason: nausea and vomiting) Qty: 20 0RF omeprazole 20 mg capsule,delayed release(DR/EC) 20 mg PO DAILY Discharge Orders: Discharge ED (Routine); Ordered 04/15/23 Ordered By: Perico Urias Referrals: Kinsey Pack DO [Primary Care Provider] - 1 week Patient Instructions: Vertigo (ED), Acute Nausea and Vomiting (DC), Hypertension (ED) Activity Restrictions/Additional Instructions: Please take your medicine as prescribed please follow-up with your family practice doctor in approximately 7 to 10 days or sooner as needed for further evaluation and treatment. Coding Level of Care Code ED [employer] Officer for Awais Herman
--- NOTE | 2023-04-15 13:22 | ECG_ITS ---
[facility] Test Date: 2023-04-15 Pat Name: Tyler Cheek Department: Room: Gender: Male [employer] Grinder: : 1960 Requested By: Perico Urias Order Number: [id number] Hammond MD: Adelia Moran M.D. Measurements Intervals [place] Rate: 56 P: 0 OK: 0 QRS: 65 QRSD: 91 T: 70 QT: 439 QTc: 425 Interpretive Statements SUPRAVENTRICULAR BRADYCARDIA ABNORMAL RHYTHM ECG No previous ECG available for comparison Electronically Signed On 04-15-2023 14:49:40 CDT by Adelia Moran M.D. [email or web address]
[2023-04-15 13:45] LABS: Basophils % 0.4 %; Eosinophils % 0.2 %; Hematocrit 44.5 % (42.0-52.0); Hemoglobin 15.5 g/dL (11.7-16.6); Lymphocytes # 1.5 10^3/uL (0.8-4.8); Lymphocytes % 17.1 %; Mean Corpuscular HGB Conc 34.8 g/dL (30.0-36.0); Mean Corpuscular Hemoglobin 32.2 pg (28.0-34.0); Mean Corpuscular Volume 92.3 fl (80-94); Monocytes # 0.4 10^3/uL (0.2-0.9); Monocytes % 4.7 %; Neutrophils # 6.88 10^3/uL (1.8-7.7); Neutrophils % 77.4 %; Nucleated Red Blood Cells % 0 %; Platelet Count 210 10^3/cmm (130-400); Red Blood Count 4.82 10^6/uL (4.1-5.3); Red Cell Distribution Width 11.9 % (12.1-15.1); White Blood Count 8.9 10^3/uL (4.0-10.0)
[2023-04-15] MEDS: lidocaine 2% viscous 15 ML, aluminum-mag hydrox-simethicon 30 ML, sucralfate oral liq 1 GM PO (14:06)
[2023-04-15] MEDS: ondansetron 4 MG Tablet PO (14:06)
[2023-04-15 14:08] LABS: Alanine Aminotransferase < 5 U/L (0-41); Albumin Level 5.1 g/dL (3.5-5.2); Alkaline Phosphatase 101 U/L (40-130); Anion Gap 17.7 (5-19); Aspartate Amino Transferase 15 U/L (0-40); Blood Urea Nitrogen 8 mg/dL (8-23); Calcium 9.2 mg/dL (8.5-10.5); Carbon Dioxide 24 mmol/L (22-29); Chloride 96 mmol/L (98-107); Globulin 2.9 g/dL (1.3-4.6); Glomerular Filtration Rate 97.6 mL/min (90-130); Glucose 121 mg/dL (65-115); Osmolality Calculated 278 mOsm/kg (285-295); Potassium 3.7 mmol/L (3.5-5.1); Sodium 134 mmol/L (136-145); Total Bilirubin 0.6 mg/dL (0.15-1.2)
[2023-04-15 14:37] VITALS: BP 140/84; PULSE 85; RESP 16; O2SAT 97
[2023-04-15 14:38] LABS: Add Urine Microscopic? NO; Bilirubin Urine Neg (Negative); Blood Urine Neg (Negative); Glucose Urine UA Norm (Normal); Ketones Urine 1+ (Negative); Leukocyte Esterase Urine Negative (Negative); Nitrate Urine Negative (Negative); Protein Urine Neg (Negative); Specific Gravity, Urine 1.015 (1.005-1.030); Sulfosalicylic Acid Urine Negative (Negative); Urine Appearance Clear (CLEAR); Urine Color Straw (Yellow); Urobilinogen Urine Norm (Negative); pH Urine 9 (5-7)
[2023-04-15 14:39] LABS: Charge for UA Resulting for Rev
[2023-04-15] MEDS: promethazine 25 mg/mL SDV 1 mL IM (15:55)
[2023-04-15 16:14] VITALS: BP 170/82; PULSE 46; RESP 16; O2SAT 96
[2023-04-15 16:43] VITALS: BP 159/65; PULSE 50; RESP 16; O2SAT 96
== END 2023-04-15 16:45 | disposition home or self-care (01) ==
PROVIDERS: Emergency Provider Emergency Medicine; PCP Family Medicine
DX: R42 Dizziness and giddiness (principal); I10 Essential (primary) hypertension; R11.0 Nausea; Z79.82 Long term (current) use of aspirin; Z87.891 Personal history of nicotine dependence
CPT/HCPCS: 36415; 71045; 80053; 81003; 85025; 93005; 96372; 99285; J2550; Q0162